=== PATIENT | male | born 1940 | race Caucasian/White ===

== ENCOUNTER 2018-04-19 13:43 | Inpatient (IN) | payer MEDICARE ==
[~2018-04-19] VITALS: Ht 188 cm; Wt 128.0 kg
[~2018-04-19 13:43] MED LIST: ASCO500C6 PO; ASPI-1181 PO; CHOL50004 PO; CLON1TAB5 PO; DILT120T PO; FINA5TAB41 PO; HYDR-4060 PO; LOVA40TA2 PO; METO100T7 PO; METO50TA9 PO; OMEP20CA10 PO; POTA20TA82 PO; RIVA20TA PO; TELM1TAB34 PO; TERA10CA4 PO; TIMO.5OS OD; VIT-10 PO; XALA2.5OS OD
[2018-04-19 14:18] LABS: BASOPHILS % (AUTO) 0.4 % (0.0-5.0); EOSINOPHILS % (AUTO) 3.5 % (0.0-8.0); HEMATOCRIT 38.8 % (42-54); MEAN CORPUSCULAR HEMOGLOBIN 31.4 pg (27.0-33.0); MEAN CORPUSCULAR HGB CONC 33.5 g/dL (32.0-36.0); MEAN CORPUSCULAR VOLUME 93.8 fL (79-99); MONOCYTES % (AUTO) 6.4 % (3.0-13.0); NEUTROPHILS % (AUTO) 77.7 % (40.0-77.0); PLATELET COUNT (AUTO) 161 K/uL (130-400); RED BLOOD CELL COUNT(AUTO) 4.13 MIL/uL (4.50-6.20); RED CELL DISTRIBUTION WIDTH 15.8 % (11.0-15.5); WHITE BLOOD COUNT (AUTO) 5.9 K/uL (4.8-10.8)
[2018-04-19 14:25] LABS: CREATININE 1.2 mg/dL (0.5-1.5); POTASSIUM 3.2 mmol/L (3.5-5.1)
[2018-04-19 14:29] LABS: ALBUMIN 3.3 g/dL (3.5-5.0); BILIRUBIN,TOTAL 0.7 mg/dL (0.2-1.0); TOTAL PROTEIN, SERUM 6.9 g/dL (6.0-8.3)
[2018-04-19 14:42] LABS: INR 1.01 (0.85-1.15); PARTIAL THROMBOPLASTIN TIME 36.5 SEC (26.3-35.5); PROTHROMBIN TIME 10.6 SEC (9.6-11.6)
[2018-04-19] MEDS ORDERED: CEFTRIAXONE SODIUM 1 GM ONE (16:50)
[2018-04-19] MEDS ORDERED: AZITHROMYCIN 250 MG TABLET PO ONE (16:51)
[2018-04-19] MEDS ORDERED: MORPHINE SULFATE 2 MG/ML 1ML SYG IVP PRN (18:00)
[2018-04-19 19:45] VITALS: BP 148/82
[2018-04-19] MEDS: IPRATROPIUM/ALBUTEROL SULFATE 3 ML SOLUTION IH SCH ×2 (19:53→23:26)
[2018-04-19] MEDS: NITROGLYCERIN 1GM/1 INCH PACKET TD SCH (20:27)
[2018-04-19] MEDS ORDERED: POTASSIUM CHLORIDE 10% ELIXIR 20 MEQ/15 ML UDCUP PO PRN (20:30)
[2018-04-19] MEDS ORDERED: POTASSIUM CHLORIDE 20MEQ/100ML 100 ML IV PRN (20:30)
[2018-04-19] MEDS ORDERED: LIDOCAINE HCL-MPF 1% 2ML VIAL IVP PRN (20:30)
[2018-04-19] MEDS ORDERED: AMIO200T5 PO (21:47)
[2018-04-19] MEDS ORDERED: TRAM100T34 PO (21:47)
[2018-04-19] MEDS ORDERED: LOSA100T29 PO (21:47)
[2018-04-19] MEDS ORDERED: CHOL100040 PO (21:47)
[2018-04-19] MEDS ORDERED: APIX5TAB PO (21:47)
[2018-04-19] MEDS ORDERED: TELM1TAB32 PO (21:47)
[2018-04-19] MEDS: POTASSIUM CHLORIDE 20 MEQ ERTAB PO PRN (23:13)
[2018-04-19 23:35] VITALS: BP 140/61
[2018-04-20] MEDS: POTASSIUM CHLORIDE 20 MEQ ERTAB PO PRN (00:59)
[2018-04-20] MEDS: NITROGLYCERIN 1GM/1 INCH PACKET TD SCH ×3 (02:00→18:00)
[2018-04-20 03:15] VITALS: BP 145/72
[2018-04-20] MEDS: IPRATROPIUM/ALBUTEROL SULFATE 3 ML SOLUTION IH SCH ×3 (06:40→18:54)
[2018-04-20 08:00] VITALS: BP 166/73
[2018-04-20] MEDS: APIXABAN 5 MG TABLET PO SCH ×3 (09:00→21:00)
[2018-04-20] MEDS ORDERED: TRAMADOL 100 MG PO PRN (09:00)
[2018-04-20] MEDS: FINASTERIDE 5 MG TABLET PO SCH (09:32)
[2018-04-20] MEDS: PANTOPRAZOLE SODIUM 40 MG TABLET.DR PO SCH (09:33)
[2018-04-20] MEDS: DILTIAZEM HCL 120 MG CAP.SR.24H PO SCH (09:33)
[2018-04-20] MEDS: ASCORBIC ACID 500 MG TAB PO SCH (09:33)
[2018-04-20] MEDS: LOSARTAN 100 MG TABLET PO SCH (09:33)
[2018-04-20] MEDS: ATORVASTATIN CALCIUM 10 MG TABLET PO SCH (09:34)
[2018-04-20] MEDS: AMIODARONE HCL 200 MG TABLET PO SCH (09:34)
[2018-04-20] MEDS: ASPIRIN 325 MG TABLET PO SCH (09:35)
[2018-04-20] MEDS: LOSARTAN/HYDROCHLOROTHIAZIDE 50-12.5MG TABLET PO SCH (09:35)
[2018-04-20] MEDS: FUROSEMIDE 10 MG/ML 2ML VIAL IV SCH (09:35)
[2018-04-20] MEDS: EYE VIT PO SCH (09:38)
[2018-04-20] MEDS: [UNRECOGNIZED DRUG - OTHER] PO SCH (09:38)
[2018-04-20] MEDS: **HM** TOPROL XL 100MG PO SCH (09:38)
[2018-04-20] MEDS: **HM** VIT D3 1000 UNITS PO SCH (09:39)
[2018-04-20 11:00] VITALS: BP 130/66
[2018-04-20 16:00] VITALS: BP 142/69
[2018-04-20] MEDS: CEFTRIAXONE SODIUM 1 GM IVP SCH (17:00)
[2018-04-20] MEDS: AZITHROMYCIN 500MG+NS 250ML 250 ML IV SCH (17:02)
[2018-04-20] MEDS ORDERED: ISOVUE-370 50ML VIAL IV ONE (17:04)
[2018-04-20 20:00] VITALS: BP 148/86
[2018-04-20] MEDS: **HM** TOPROL XL 50MG PO SCH (21:00)
[2018-04-20] MEDS: ASPIRIN 81 MG EC TAB PO SCH (21:00)
[2018-04-20] MEDS: TERAZOSIN HCL 5 MG CAPSULE PO SCH (21:00)
[2018-04-20] MEDS: POTASSIUM CHLORIDE 20 MEQ ERTAB PO SCH (22:40)
[2018-04-21] VITALS: BP 152/80
[2018-04-21] MEDS: IPRATROPIUM/ALBUTEROL SULFATE 3 ML SOLUTION IH SCH ×5 (00:53→23:51)
[2018-04-21] MEDS: NITROGLYCERIN 1GM/1 INCH PACKET TD SCH ×2 (02:15→10:00)
[2018-04-21 04:23] VITALS: BP 133/70
[2018-04-21 04:31] LABS: HEMATOCRIT 32.8 % (42-54); MEAN CORPUSCULAR HEMOGLOBIN 31.7 pg (27.0-33.0); PLATELET COUNT (AUTO) 183 K/uL (130-400); RED BLOOD CELL COUNT(AUTO) 3.52 MIL/uL (4.50-6.20); RED CELL DISTRIBUTION WIDTH 15.8 % (11.0-15.5); WHITE BLOOD COUNT (AUTO) 5.3 K/uL (4.8-10.8)
[2018-04-21 04:52] LABS: ALBUMIN 2.9 g/dL (3.5-5.0); BILIRUBIN,TOTAL 0.6 mg/dL (0.2-1.0); CREATININE 1.2 mg/dL (0.5-1.5); POTASSIUM 3.7 mmol/L (3.5-5.1)
[2018-04-21 04:54] LABS: B-TYPE NATRIURETIC PEPTIDE 128 pg/mL (0-100)
[2018-04-21 08:00] VITALS: BP 147/66
[2018-04-21] MEDS: [UNRECOGNIZED DRUG - OTHER] PO SCH (09:00)
[2018-04-21] MEDS: EYE VIT PO SCH (09:00)
[2018-04-21] MEDS: **HM** VIT D3 1000 UNITS PO SCH (09:00)
[2018-04-21] MEDS: FUROSEMIDE 10 MG/ML 2ML VIAL IV SCH (09:27)
[2018-04-21] MEDS: ASPIRIN 325 MG TABLET PO SCH (09:28)
[2018-04-21] MEDS: APIXABAN 5 MG TABLET PO SCH ×2 (09:29→21:02)
[2018-04-21] MEDS: ATORVASTATIN CALCIUM 10 MG TABLET PO SCH (09:29)
[2018-04-21] MEDS: ASCORBIC ACID 500 MG TAB PO SCH (09:29)
[2018-04-21] MEDS: FINASTERIDE 5 MG TABLET PO SCH (09:29)
[2018-04-21] MEDS: LOSARTAN/HYDROCHLOROTHIAZIDE 50-12.5MG TABLET PO SCH (09:29)
[2018-04-21] MEDS: PANTOPRAZOLE SODIUM 40 MG TABLET.DR PO SCH (09:30)
[2018-04-21] MEDS: LOSARTAN 100 MG TABLET PO SCH (09:30)
[2018-04-21] MEDS: DILTIAZEM HCL 120 MG CAP.SR.24H PO SCH (09:30)
[2018-04-21] MEDS: AMIODARONE HCL 200 MG TABLET PO SCH (09:30)
[2018-04-21] MEDS: POTASSIUM CHLORIDE 20 MEQ ERTAB PO SCH (09:31)
[2018-04-21] MEDS: **HM** TOPROL XL 100MG PO SCH (09:32)
[2018-04-21 11:00] VITALS: BP 129/69
[2018-04-21 16:00] VITALS: BP 144/77
[2018-04-21] MEDS: CEFTRIAXONE SODIUM 1 GM IVP SCH (17:29)
[2018-04-21] MEDS: AZITHROMYCIN 500MG+NS 250ML 250 ML IV SCH (17:31)
[2018-04-21 20:00] VITALS: BP 146/68
[2018-04-21] MEDS: **HM** TOPROL XL 50MG PO SCH (21:00)
[2018-04-21] MEDS: TERAZOSIN HCL 5 MG CAPSULE PO SCH (21:00)
[2018-04-21] MEDS: ASPIRIN 81 MG EC TAB PO SCH (21:02)
[2018-04-22] VITALS: BP 150/80
[2018-04-22] MEDS: NITROGLYCERIN 1GM/1 INCH PACKET TD SCH ×2 (03:20→10:40)
[2018-04-22 04:00] VITALS: BP 144/74
[2018-04-22 05:34] LABS: MEAN CORPUSCULAR HEMOGLOBIN 32.7 pg (27.0-33.0); MEAN CORPUSCULAR HGB CONC 35.4 g/dL (32.0-36.0); MEAN CORPUSCULAR VOLUME 92.3 fL (79-99); PLATELET COUNT (AUTO) 194 K/uL (130-400); RED BLOOD CELL COUNT(AUTO) 3.57 MIL/uL (4.50-6.20); RED CELL DISTRIBUTION WIDTH 15.7 % (11.0-15.5); WHITE BLOOD COUNT (AUTO) 6.4 K/uL (4.8-10.8)
[2018-04-22 05:48] LABS: CREATININE 1.1 mg/dL (0.5-1.5); POTASSIUM 3.9 mmol/L (3.5-5.1)
[2018-04-22] MEDS: IPRATROPIUM/ALBUTEROL SULFATE 3 ML SOLUTION IH SCH ×4 (06:51→18:50)
[2018-04-22 08:00] VITALS: BP 139/72
[2018-04-22] MEDS: [UNRECOGNIZED DRUG - OTHER] PO SCH (09:00)
[2018-04-22] MEDS: EYE VIT PO SCH (09:00)
[2018-04-22] MEDS: **HM** TOPROL XL 100MG PO SCH (09:00)
[2018-04-22] MEDS: **HM** VIT D3 1000 UNITS PO SCH (09:00)
[2018-04-22] MEDS ORDERED: TAMSULOSIN HCL 0.4 MG CAP.ER.24H PO SCH (09:00)
[2018-04-22] MEDS: ATORVASTATIN CALCIUM 10 MG TABLET PO SCH (10:39)
[2018-04-22] MEDS: LOSARTAN/HYDROCHLOROTHIAZIDE 50-12.5MG TABLET PO SCH (10:39)
[2018-04-22] MEDS: PANTOPRAZOLE SODIUM 40 MG TABLET.DR PO SCH (10:39)
[2018-04-22] MEDS: APIXABAN 5 MG TABLET PO SCH (10:39)
[2018-04-22] MEDS: AMIODARONE HCL 200 MG TABLET PO SCH (10:40)
[2018-04-22] MEDS: FINASTERIDE 5 MG TABLET PO SCH (10:40)
[2018-04-22] MEDS: DILTIAZEM HCL 120 MG CAP.SR.24H PO SCH (10:40)
[2018-04-22] MEDS: ASCORBIC ACID 500 MG TAB PO SCH (10:40)
[2018-04-22 12:00] VITALS: BP 153/77
[2018-04-22] MEDS: AZITHROMYCIN 500MG+NS 250ML 250 ML IV SCH (18:21)
[2018-04-22] MEDS: CEFTRIAXONE SODIUM 1 GM IVP SCH (18:22)
== END 2018-04-22 18:54 | DRG 194 ==
LOC: EDH 13:43 → EDHIP 17:25 → 3BH 19:38
PROVIDERS: ADMIT Family Medicine; ATTEND Family Medicine
DX: J18.9 Pneumonia, unspecified organism (principal); R04.2 Hemoptysis; I25.10 Atherosclerotic heart disease of native coronary artery without angina pectoris; E78.5 Hyperlipidemia, unspecified; E66.9 Obesity, unspecified; J30.2 Other seasonal allergic rhinitis; G89.29 Other chronic pain; I11.9 Hypertensive heart disease without heart failure; M54.9 Dorsalgia, unspecified; N40.1 Benign prostatic hyperplasia with lower urinary tract symptoms; J20.9 Acute bronchitis, unspecified; I48.0 Paroxysmal atrial fibrillation; R33.8 Other retention of urine; E78.00 Pure hypercholesterolemia, unspecified; Z96.653 Presence of artificial knee joint, bilateral; Z90.49 Acquired absence of other specified parts of digestive tract; Z87.891 Personal history of nicotine dependence; Z79.899 Other long term (current) drug therapy; Z95.5 Presence of coronary angioplasty implant and graft; Z79.01 Long term (current) use of anticoagulants; Z68.36 Body mass index [BMI] 36.0-36.9, adult; Z88.5 Allergy status to narcotic agent
CPT/HCPCS: 36415; 71045; 71270; 80048; 80053; 82270; 83880; 84132; 84484; 85025; 85027; 85610; 85730; 87071; 87205; 93005; 94640; 94664; 94760; A4218; A4344; J0456; J0696; J1940; Q9967

== ENCOUNTER → 2018-08-05 | Outpatient (CLI) | payer MEDICARE ==
[~2018-08-05] MED LIST changes: +AMIO200T5 PO; +APIX5TAB PO; +CHOL100040 PO; -CHOL50004 PO; +CLON1TAB12 PO; -CLON1TAB5 PO; +LOSA100T20 PO; -RIVA20TA PO; +TELM1TAB32 PO; +TRAM100T34 PO
== END | disposition home or self-care (01) ==
LOC: RAH 12:33
PROVIDERS: ATTEND Urology
DX: R31.29 Other microscopic hematuria (principal); N32.89 Other specified disorders of bladder
CPT/HCPCS: 76770

== ENCOUNTER → 2020-10-29 | Outpatient (CLI) | payer MEDICARE ==
[~2020-10-29] MED LIST changes: -AMIO200T5 PO; +AMIO200T6 PO; -ASPI-1181 PO; +ASPI-1443 PO; +IOHEXOL 350 MG/ML 100ML INFUS..BTL IV ONE; -LOSA100T20 PO; +LOSA100T58 PO; -OMEP20CA10 PO; +OMEP20CA12 PO
== END | disposition home or self-care (01) ==
LOC: RAH 07:26
PROVIDERS: ATTEND Internal Medicine Cardiovascular Disease
DX: I71.4 Abdominal aortic aneurysm, without rupture (principal); N40.0 Benign prostatic hyperplasia without lower urinary tract symptoms; I70.0 Atherosclerosis of aorta; E04.2 Nontoxic multinodular goiter
CPT/HCPCS: 71275; 74174; Q9967

== ENCOUNTER 2021-09-15 14:45 | Inpatient (IN) | payer MEDICARE ==
[~2021-09-15] VITALS: Ht 188 cm; Wt 118.0 kg
[~2021-09-15 14:45] MED LIST changes: -AMIO200T6 PO; +AMIO200T68 PO; -IOHEXOL 350 MG/ML 100ML INFUS..BTL IV ONE; +POTA-202 PO; -POTA20TA82 PO; -TELM1TAB34 PO; +TELM1TAB42 PO
[2021-09-15] MEDS ORDERED: MORPHINE 4 MG SYG IV ONE (15:30)
[2021-09-15] MEDS ORDERED: ONDANSETRON 4MG INJ IVP ONE (15:30)
[2021-09-15] MEDS ORDERED: KETOROLAC 15MG/ML VIAL (15MG/ML) IV ONE (15:30)
[2021-09-15 16:04] LABS: BASOPHILS % (AUTO) 0.4 % (0.0-5.0); EOSINOPHILS % (AUTO) 1.1 % (0.0-8.0); HEMATOCRIT 39.1 % (42-54); LYMPHOCYTES % (AUTO) 14.3 % (21.0-51.0); MEAN CORPUSCULAR HEMOGLOBIN 28.7 pg (27.0-33.0); MEAN CORPUSCULAR HGB CONC 31.7 g/dL (32.0-36.0); MEAN CORPUSCULAR VOLUME 90.5 fL (79-99); NEUTROPHILS % (AUTO) 76.1 % (40.0-77.0); PLATELET COUNT (AUTO) 263 K/uL (130-400); RED BLOOD CELL COUNT(AUTO) 4.32 MIL/uL (4.50-6.20); RED CELL DISTRIBUTION WIDTH 14.6 % (11.0-15.5); WHITE BLOOD COUNT (AUTO) 8.4 K/uL (4.8-10.8)
[2021-09-15 16:15] LABS: CREATININE 1.1 mg/dL (0.5-1.5)
[2021-09-15 16:20] LABS: ALBUMIN 2.6 g/dL (3.5-5.0); BILIRUBIN,TOTAL 0.5 mg/dL (0.2-1.0); TOTAL PROTEIN, SERUM 7.3 g/dL (6.0-8.3)
[2021-09-15] MEDS ORDERED: ONDANSETRON 4MG INJ ONE (16:43)
[2021-09-15] MEDS ORDERED: MORPHINE 4 MG SYG ONE (16:43)
[2021-09-15] MEDS ORDERED: KETOROLAC 15MG/ML VIAL (15MG/ML) ONE (16:43)
[2021-09-15] MEDS ORDERED: ONDANSETRON 4MG INJ IV PRN (18:00)
[2021-09-15] MEDS ORDERED: MORPHINE 2 MG SYG IV PRN (18:00)
[2021-09-15] MEDS ORDERED: ZOLPIDEM TARTRATE 5 MG TAB PO PRN (18:00)
[2021-09-15] MEDS ORDERED: LACTULOSE 20 GM/30 ML UDCUP PO PRN (18:00)
[2021-09-15] MEDS ORDERED: ACETAMINOPHEN 325 MG TAB PO PRN ×2 (18:00)
[2021-09-15] MEDS: FAMOTIDINE 20MG VIAL IV SCH (22:00)
[2021-09-15 23:45] VITALS: BP 141/58
[2021-09-16] MEDS ORDERED: AMLO-258 PO (01:09)
[2021-09-16] MEDS ORDERED: FURO40TA5 PO (01:09)
[2021-09-16] MEDS ORDERED: OCCUVITE PO (01:09)
[2021-09-16] MEDS ORDERED: MULT-1285 PO (01:09)
[2021-09-16] MEDS ORDERED: HYDR-3420 PO (01:09)
[2021-09-16 04:01] VITALS: BP 125/60
[2021-09-16 05:33] LABS: BASOPHILS % (AUTO) 0.4 % (0.0-5.0); EOSINOPHILS % (AUTO) 1.4 % (0.0-8.0); LYMPHOCYTES % (AUTO) 16.5 % (21.0-51.0); MEAN CORPUSCULAR HEMOGLOBIN 28.7 pg (27.0-33.0); MEAN CORPUSCULAR HGB CONC 31.1 g/dL (32.0-36.0); MEAN CORPUSCULAR VOLUME 92.3 fL (79-99); MONOCYTES % (AUTO) 9.5 % (3.0-13.0); NEUTROPHILS % (AUTO) 70.9 % (40.0-77.0); PLATELET COUNT (AUTO) 241 K/uL (130-400); RED CELL DISTRIBUTION WIDTH 14.6 % (11.0-15.5); WHITE BLOOD COUNT (AUTO) 8.5 K/uL (4.8-10.8)
[2021-09-16 05:47] LABS: ALBUMIN 2.3 g/dL (3.5-5.0); BILIRUBIN,TOTAL 0.5 mg/dL (0.2-1.0); POTASSIUM 4.3 mmol/L (3.5-5.1); TOTAL PROTEIN, SERUM 6.6 g/dL (6.0-8.3)
[2021-09-16 07:55] VITALS: BP 138/54
[2021-09-16] MEDS ORDERED: NON-FORMULARY MEDICATION 1 EACH (Metoprolol Succinate (Toprol Xl) 100 MG) PO SCH (09:00)
[2021-09-16] MEDS ORDERED: TELMISARTAN/HYDROCHLOROTHIAZID 80/12.5 MG TAB PO SCH (09:00)
[2021-09-16] MEDS ORDERED: [UNRECOGNIZED DRUG - OTHER] PO SCH (09:00)
[2021-09-16] MEDS: GABAPENTIN 100 MG CAPSULE PO SCH ×2 (09:50→19:59)
[2021-09-16] MEDS: ASPIRIN 81 MG EC TAB PO SCH (09:50)
[2021-09-16] MEDS: APIXABAN 5 MG TABLET PO SCH ×2 (09:51→19:59)
[2021-09-16] MEDS: FUROSEMIDE 40 MG TABLET PO SCH (09:51)
[2021-09-16] MEDS: ASCORBIC ACID 500 MG TAB PO SCH (09:51)
[2021-09-16] MEDS: AMIODARONE 200 MG TABLET PO SCH (09:52)
[2021-09-16] MEDS: HYDRALAZINE HCL 10 MG TABLET PO SCH (09:52)
[2021-09-16] MEDS: LOSARTAN 100 MG TABLET PO SCH (09:52)
[2021-09-16] MEDS: AMLODIPINE 5 MG TAB PO SCH (09:53)
[2021-09-16] MEDS: POLYETHYLENE GLYCOL 3350 17 GM POWD.PACK PO SCH (09:55)
[2021-09-16] MEDS: FAMOTIDINE 20MG VIAL IV SCH ×2 (09:55→21:28)
[2021-09-16] MEDS: METOPROLOL SUCCINATE 50 MG TAB.SR.24H PO SCH ×2 (11:21→20:00)
[2021-09-16] MEDS: PANTOPRAZOLE 40 MG TAB DR PO SCH (11:37)
[2021-09-16] MEDS: MORPHINE 2 MG SYG IV PRN ×2 (11:44→20:03)
[2021-09-16 12:00] VITALS: BP 146/62
[2021-09-16] MEDS: MULTIVITS,STRESS FORMULA/ZINC 1 TABLET PO SCH (15:20)
[2021-09-16 16:00] VITALS: BP 125/59
[2021-09-16] MEDS: TRAMADOL HCL 50 MG TABLET PO PRN (16:56)
[2021-09-16 19:55] VITALS: BP 152/64
[2021-09-16] MEDS ORDERED: KCL 20 MEQ ERTAB PO ONE (19:56)
[2021-09-16] MEDS: FINASTERIDE 5 MG TABLET PO SCH (19:59)
[2021-09-16] MEDS: SIMVASTATIN 20 MG TABLET PO SCH (19:59)
[2021-09-16] MEDS: KCL 20 MEQ ERTAB PO SCH (20:01)
[2021-09-16] MEDS: TERAZOSIN 5MG CAP PO SCH (20:02)
[2021-09-16] MEDS ORDERED: METOPROLOL SUCCINATE 50 MG TAB.SR.24H PO SCH (21:00)
[2021-09-16] MEDS ORDERED: LATANOPROST 2.5 ML DROPS OD SCH (21:00)
[2021-09-16 23:09] VITALS: BP 149/65
[2021-09-17 03:46] VITALS: BP 127/61
[2021-09-17 06:18] LABS: BASOPHILS % (AUTO) 0.3 % (0.0-5.0); EOSINOPHILS % (AUTO) 1.6 % (0.0-8.0); HEMATOCRIT 35.8 % (42-54); LYMPHOCYTES % (AUTO) 20.3 % (21.0-51.0); MEAN CORPUSCULAR HEMOGLOBIN 28.5 pg (27.0-33.0); MEAN CORPUSCULAR HGB CONC 31.3 g/dL (32.0-36.0); MEAN CORPUSCULAR VOLUME 91.1 fL (79-99); MONOCYTES % (AUTO) 10.1 % (3.0-13.0); NEUTROPHILS % (AUTO) 66.8 % (40.0-77.0); PLATELET COUNT (AUTO) 251 K/uL (130-400); RED BLOOD CELL COUNT(AUTO) 3.93 MIL/uL (4.50-6.20); RED CELL DISTRIBUTION WIDTH 14.6 % (11.0-15.5); WHITE BLOOD COUNT (AUTO) 7.7 K/uL (4.8-10.8)
[2021-09-17 06:27] LABS: CREATININE 1.1 mg/dL (0.5-1.5); POTASSIUM 4.2 mmol/L (3.5-5.1)
[2021-09-17] MEDS: PANTOPRAZOLE 40 MG TAB DR PO SCH (06:54)
[2021-09-17 08:00] VITALS: BP 140/62
[2021-09-17] MEDS: POLYETHYLENE GLYCOL 3350 17 GM POWD.PACK PO SCH (09:25)
[2021-09-17] MEDS: ASPIRIN 81 MG EC TAB PO SCH (09:27)
[2021-09-17] MEDS: ASCORBIC ACID 500 MG TAB PO SCH (09:28)
[2021-09-17] MEDS: LOSARTAN 100 MG TABLET PO SCH (09:28)
[2021-09-17] MEDS: FAMOTIDINE 20MG VIAL IV SCH ×2 (09:28→20:53)
[2021-09-17] MEDS: AMLODIPINE 5 MG TAB PO SCH (09:28)
[2021-09-17] MEDS: AMIODARONE 200 MG TABLET PO SCH (09:28)
[2021-09-17] MEDS: APIXABAN 5 MG TABLET PO SCH ×2 (09:28→20:30)
[2021-09-17] MEDS: HYDRALAZINE HCL 10 MG TABLET PO SCH (09:28)
[2021-09-17] MEDS: METOPROLOL SUCCINATE 50 MG TAB.SR.24H PO SCH ×2 (09:29→20:31)
[2021-09-17] MEDS: FUROSEMIDE 40 MG TABLET PO SCH (09:29)
[2021-09-17] MEDS ORDERED: HYDROCODONE/ACETAMINOPHEN 5/325 MG TAB PO PRN (10:00)
[2021-09-17 12:00] VITALS: BP 105/57
[2021-09-17] MEDS: GLYCERIN ADULT SUPP.RECT RC SCH (13:06)
[2021-09-17] MEDS: BACLOFEN 10 MG TABLET PO SCH ×2 (13:06→20:29)
[2021-09-17] MEDS: MULTIVITS,STRESS FORMULA/ZINC 1 TABLET PO SCH (14:51)
[2021-09-17 16:00] VITALS: BP 152/56
[2021-09-17 20:00] VITALS: BP 129/60
[2021-09-17] MEDS: CLONAZEPAM 1MG TAB PO PRN (20:29)
[2021-09-17] MEDS: FINASTERIDE 5 MG TABLET PO SCH (20:29)
[2021-09-17] MEDS: SIMVASTATIN 20 MG TABLET PO SCH (20:29)
[2021-09-17] MEDS: GABAPENTIN 100 MG CAPSULE PO SCH (20:30)
[2021-09-17] MEDS: KCL 20 MEQ ERTAB PO SCH (20:30)
[2021-09-17] MEDS: TERAZOSIN 5MG CAP PO SCH (20:31)
[2021-09-18] VITALS: BP 142/53
[2021-09-18 04:00] VITALS: BP 109/61
[2021-09-18] MEDS: PANTOPRAZOLE 40 MG TAB DR PO SCH (07:11)
[2021-09-18] MEDS: POLYETHYLENE GLYCOL 3350 17 GM POWD.PACK PO SCH (08:26)
[2021-09-18] MEDS: BACLOFEN 10 MG TABLET PO SCH ×2 (08:27→21:00)
[2021-09-18] MEDS: AMLODIPINE 5 MG TAB PO SCH (08:27)
[2021-09-18] MEDS: GABAPENTIN 100 MG CAPSULE PO SCH ×2 (08:27→21:00)
[2021-09-18] MEDS: MULTIVITS,STRESS FORMULA/ZINC 1 TABLET PO SCH (08:28)
[2021-09-18] MEDS: FUROSEMIDE 40 MG TABLET PO SCH (08:28)
[2021-09-18] MEDS: HYDRALAZINE HCL 10 MG TABLET PO SCH (08:28)
[2021-09-18] MEDS: METOPROLOL SUCCINATE 50 MG TAB.SR.24H PO SCH ×2 (08:28→21:01)
[2021-09-18] MEDS: LOSARTAN 100 MG TABLET PO SCH (08:28)
[2021-09-18] MEDS: AMIODARONE 200 MG TABLET PO SCH (08:29)
[2021-09-18] MEDS: FAMOTIDINE 20MG VIAL IV SCH ×2 (08:29→21:00)
[2021-09-18] MEDS: ASPIRIN 81 MG EC TAB PO SCH (08:29)
[2021-09-18] MEDS: ASCORBIC ACID 500 MG TAB PO SCH (08:29)
[2021-09-18] MEDS: APIXABAN 5 MG TABLET PO SCH ×2 (08:29→21:00)
[2021-09-18 08:52] VITALS: BP 153/58
[2021-09-18] MEDS ORDERED: SENNOSIDES 8.6 MG TABLET PO SCH (09:00)
[2021-09-18] MEDS: GLYCERIN ADULT SUPP.RECT RC SCH (09:31)
[2021-09-18 11:52] VITALS: BP 132/57
[2021-09-18] MEDS ORDERED: VANCOMYCIN PROTOCOL PER PHARMACY IV SCH (13:30)
[2021-09-18] MEDS ORDERED: COMPOUND IV REFRIGERATED 1 EACH IVSOLN MISC PRN (15:00)
[2021-09-18] MEDS: VANCOMYCIN 1.5GM/NS 250ML IV SCH ×2 (17:04)
[2021-09-18 17:14] VITALS: BP 120/73
[2021-09-18 20:00] VITALS: BP 112/62
[2021-09-18] MEDS: FINASTERIDE 5 MG TABLET PO SCH (21:00)
[2021-09-18] MEDS: SIMVASTATIN 20 MG TABLET PO SCH (21:01)
[2021-09-18] MEDS: KCL 20 MEQ ERTAB PO SCH (21:09)
[2021-09-18] MEDS: TERAZOSIN 5MG CAP PO SCH (21:09)
[2021-09-18] MEDS: CLONAZEPAM 1MG TAB PO PRN (21:40)
[2021-09-19] VITALS (7 sets, daily range): BP systolic 90–128; BP diastolic 47–59
[2021-09-19 06:21] LABS: BASOPHILS % (AUTO) 0.3 % (0.0-5.0); EOSINOPHILS % (AUTO) 3.2 % (0.0-8.0); HEMATOCRIT 35.4 % (42-54); LYMPHOCYTES % (AUTO) 13.5 % (21.0-51.0); MEAN CORPUSCULAR HEMOGLOBIN 28.9 pg (27.0-33.0); MEAN CORPUSCULAR HGB CONC 31.6 g/dL (32.0-36.0); MEAN CORPUSCULAR VOLUME 91.2 fL (79-99); MONOCYTES % (AUTO) 9.4 % (3.0-13.0); NEUTROPHILS % (AUTO) 72.6 % (40.0-77.0); PLATELET COUNT (AUTO) 264 K/uL (130-400); RED BLOOD CELL COUNT(AUTO) 3.88 MIL/uL (4.50-6.20); RED CELL DISTRIBUTION WIDTH 14.7 % (11.0-15.5); WHITE BLOOD COUNT (AUTO) 9.6 K/uL (4.8-10.8)
[2021-09-19] MEDS: PANTOPRAZOLE 40 MG TAB DR PO SCH (06:30)
[2021-09-19 06:33] LABS: CREATININE 1.4 mg/dL (0.5-1.5); POTASSIUM 4.1 mmol/L (3.5-5.1)
[2021-09-19] MEDS: ASPIRIN 81 MG EC TAB PO SCH (08:27)
[2021-09-19] MEDS: METOPROLOL SUCCINATE 50 MG TAB.SR.24H PO SCH ×2 (08:27→21:03)
[2021-09-19] MEDS: ASCORBIC ACID 500 MG TAB PO SCH (08:28)
[2021-09-19] MEDS: HYDRALAZINE HCL 10 MG TABLET PO SCH ×2 (08:28→09:00)
[2021-09-19] MEDS: AMIODARONE 200 MG TABLET PO SCH (08:28)
[2021-09-19] MEDS: GABAPENTIN 100 MG CAPSULE PO SCH ×2 (08:28→21:02)
[2021-09-19] MEDS: LOSARTAN 100 MG TABLET PO SCH (08:28)
[2021-09-19] MEDS: FUROSEMIDE 40 MG TABLET PO SCH (08:28)
[2021-09-19] MEDS: AMLODIPINE 5 MG TAB PO SCH (08:30)
[2021-09-19] MEDS: FAMOTIDINE 20MG VIAL IV SCH ×2 (08:32→21:01)
[2021-09-19] MEDS: APIXABAN 5 MG TABLET PO SCH ×2 (08:32→21:01)
[2021-09-19] MEDS: BACLOFEN 10 MG TABLET PO SCH (08:32)
[2021-09-19] MEDS: CEFTRIAXONE 2GM VIAL IVP SCH (09:00)
[2021-09-19] MEDS: VANCOMYCIN 1.5GM/NS 250ML IV SCH ×4 (09:00→21:05)
[2021-09-19] MEDS: GLYCERIN ADULT SUPP.RECT RC SCH (10:33)
[2021-09-19] MEDS: MULTIVITS,STRESS FORMULA/ZINC 1 TABLET PO SCH (10:53)
[2021-09-19] MEDS: FINASTERIDE 5 MG TABLET PO SCH (21:02)
[2021-09-19] MEDS: TERAZOSIN 5MG CAP PO SCH (21:02)
[2021-09-19] MEDS: SIMVASTATIN 20 MG TABLET PO SCH (21:02)
[2021-09-19] MEDS: KCL 20 MEQ ERTAB PO SCH (21:04)
[2021-09-20 03:14] VITALS: BP 124/60
[2021-09-20] MEDS: PANTOPRAZOLE 40 MG TAB DR PO SCH (06:13)
[2021-09-20] MEDS: TRAMADOL HCL 50 MG TABLET PO PRN (06:16)
[2021-09-20 06:44] LABS: BASOPHILS % (AUTO) 0.5 % (0.0-5.0); EOSINOPHILS % (AUTO) 4.5 % (0.0-8.0); HEMATOCRIT 34.4 % (42-54); MEAN CORPUSCULAR HEMOGLOBIN 28.5 pg (27.0-33.0); MEAN CORPUSCULAR HGB CONC 31.7 g/dL (32.0-36.0); MEAN CORPUSCULAR VOLUME 90.1 fL (79-99); MONOCYTES % (AUTO) 8.3 % (3.0-13.0); NEUTROPHILS % (AUTO) 68.6 % (40.0-77.0); PLATELET COUNT (AUTO) 288 K/uL (130-400); RED BLOOD CELL COUNT(AUTO) 3.82 MIL/uL (4.50-6.20); RED CELL DISTRIBUTION WIDTH 14.9 % (11.0-15.5); WHITE BLOOD COUNT (AUTO) 8.4 K/uL (4.8-10.8)
[2021-09-20 06:56] LABS: ALBUMIN 2.1 g/dL (3.5-5.0); BILIRUBIN,TOTAL 0.4 mg/dL (0.2-1.0); CREATININE 1.5 mg/dL (0.5-1.5); POTASSIUM 4.2 mmol/L (3.5-5.1); TOTAL PROTEIN, SERUM 6.4 g/dL (6.0-8.3)
[2021-09-20 07:15] VITALS: BP 142/70
[2021-09-20] MEDS: AMLODIPINE 5 MG TAB PO SCH (08:40)
[2021-09-20] MEDS: METOPROLOL SUCCINATE 50 MG TAB.SR.24H PO SCH ×2 (08:40→21:08)
[2021-09-20] MEDS: ASCORBIC ACID 500 MG TAB PO SCH (08:40)
[2021-09-20] MEDS: FUROSEMIDE 40 MG TABLET PO SCH (08:40)
[2021-09-20] MEDS: AMIODARONE 200 MG TABLET PO SCH (08:40)
[2021-09-20] MEDS: ASPIRIN 81 MG EC TAB PO SCH (08:40)
[2021-09-20] MEDS: LOSARTAN 100 MG TABLET PO SCH (08:40)
[2021-09-20] MEDS: GABAPENTIN 100 MG CAPSULE PO SCH ×2 (08:40→21:08)
[2021-09-20] MEDS: APIXABAN 5 MG TABLET PO SCH ×2 (08:41→21:09)
[2021-09-20] MEDS: HYDRALAZINE HCL 10 MG TABLET PO SCH (08:41)
[2021-09-20] MEDS: CEFTRIAXONE 2GM VIAL IVP SCH (08:41)
[2021-09-20] MEDS: FAMOTIDINE 20MG VIAL IV SCH (09:00)
[2021-09-20] MEDS: VANCOMYCIN 1.5GM/NS 250ML IV SCH ×2 (09:00)
[2021-09-20] MEDS: MULTIVITS,STRESS FORMULA/ZINC 1 TABLET PO SCH (10:36)
[2021-09-20 11:15] VITALS: BP 137/54
[2021-09-20 15:15] VITALS: BP 124/65
[2021-09-20 20:11] VITALS: BP 154/61
[2021-09-20] MEDS: KCL 20 MEQ ERTAB PO SCH (21:07)
[2021-09-20] MEDS: SIMVASTATIN 20 MG TABLET PO SCH (21:08)
[2021-09-20] MEDS: FINASTERIDE 5 MG TABLET PO SCH (21:08)
[2021-09-20] MEDS: TERAZOSIN 5MG CAP PO SCH (21:08)
[2021-09-20] MEDS ORDERED: VANCOMYCIN PROTOCOL PER PHARMACY IV SCH (21:30)
[2021-09-20] MEDS ORDERED: VANCOMYCIN 1G/250ML KIT 250 ML IV ONE (23:00)
[2021-09-20] MEDS ORDERED: 0.9% NACL 250ML 250 ML ONE (23:17)
[2021-09-20 23:24] VITALS: BP 138/51
[2021-09-21 03:11] VITALS: BP 140/60
[2021-09-21 04:28] LABS: BASOPHILS % (AUTO) 0.3 % (0.0-5.0); EOSINOPHILS % (AUTO) 4.2 % (0.0-8.0); HEMATOCRIT 33.8 % (42-54); LYMPHOCYTES % (AUTO) 17.5 % (21.0-51.0); MEAN CORPUSCULAR HEMOGLOBIN 28.3 pg (27.0-33.0); MEAN CORPUSCULAR HGB CONC 31.1 g/dL (32.0-36.0); MEAN CORPUSCULAR VOLUME 91.1 fL (79-99); MONOCYTES % (AUTO) 9.7 % (3.0-13.0); NEUTROPHILS % (AUTO) 66.9 % (40.0-77.0); PLATELET COUNT (AUTO) 298 K/uL (130-400); RED BLOOD CELL COUNT(AUTO) 3.71 MIL/uL (4.50-6.20); WHITE BLOOD COUNT (AUTO) 9.2 K/uL (4.8-10.8)
[2021-09-21 04:42] LABS: CREATININE 1.9 mg/dL (0.5-1.5); POTASSIUM 4.5 mmol/L (3.5-5.1)
[2021-09-21] MEDS: PANTOPRAZOLE 40 MG TAB DR PO SCH (06:02)
[2021-09-21 07:15] VITALS: BP 142/62
[2021-09-21] MEDS: GABAPENTIN 100 MG CAPSULE PO SCH ×2 (10:15→20:07)
[2021-09-21] MEDS: LOSARTAN 100 MG TABLET PO SCH (10:15)
[2021-09-21] MEDS: AMIODARONE 200 MG TABLET PO SCH (10:15)
[2021-09-21] MEDS: MULTIVITS,STRESS FORMULA/ZINC 1 TABLET PO SCH (10:15)
[2021-09-21] MEDS: ASCORBIC ACID 500 MG TAB PO SCH (10:15)
[2021-09-21] MEDS: METOPROLOL SUCCINATE 50 MG TAB.SR.24H PO SCH ×2 (10:16→20:07)
[2021-09-21] MEDS: AMLODIPINE 5 MG TAB PO SCH (10:16)
[2021-09-21] MEDS: ASPIRIN 81 MG EC TAB PO SCH (10:16)
[2021-09-21] MEDS: HYDRALAZINE HCL 10 MG TABLET PO SCH (10:17)
[2021-09-21] MEDS: CEFTRIAXONE 2GM VIAL IVP SCH (10:17)
[2021-09-21] MEDS: APIXABAN 5 MG TABLET PO SCH (10:17)
[2021-09-21 11:15] VITALS: BP 144/57
[2021-09-21] MEDS ORDERED: PEG 3350/NA SULF,BICARB,CL/KCL 4000 ML SOLN PO SCH (14:00)
[2021-09-21 15:15] VITALS: BP 136/73
[2021-09-21] MEDS ORDERED: MAGNESIUM CITRATE 296 ML SOLUTION PO SCH (18:00)
[2021-09-21 19:54] VITALS: BP 123/54
[2021-09-21] MEDS: FINASTERIDE 5 MG TABLET PO SCH (20:07)
[2021-09-21] MEDS: SIMVASTATIN 20 MG TABLET PO SCH (20:07)
[2021-09-21] MEDS: TERAZOSIN 5MG CAP PO SCH (20:09)
[2021-09-21] MEDS: KCL 20 MEQ ERTAB PO SCH (20:09)
[2021-09-21] MEDS ORDERED: VANCOMYCIN 1.5GM/NS 250ML IV SCH ×2 (21:00)
[2021-09-21 23:27] VITALS: BP 122/57
[2021-09-22 04:06] VITALS: BP 121/59
[2021-09-22] MEDS: PANTOPRAZOLE 40 MG TAB DR PO SCH (06:35)
[2021-09-22 06:58] LABS: BASOPHILS % (AUTO) 0.3 % (0.0-5.0); EOSINOPHILS % (AUTO) 3.1 % (0.0-8.0); HEMATOCRIT 32.5 % (42-54); LYMPHOCYTES % (AUTO) 16.4 % (21.0-51.0); MEAN CORPUSCULAR HEMOGLOBIN 28.2 pg (27.0-33.0); MEAN CORPUSCULAR HGB CONC 30.8 g/dL (32.0-36.0); MEAN CORPUSCULAR VOLUME 91.5 fL (79-99); MONOCYTES % (AUTO) 8.9 % (3.0-13.0); NEUTROPHILS % (AUTO) 69.5 % (40.0-77.0); PLATELET COUNT (AUTO) 299 K/uL (130-400); RED BLOOD CELL COUNT(AUTO) 3.55 MIL/uL (4.50-6.20); RED CELL DISTRIBUTION WIDTH 15.3 % (11.0-15.5); WHITE BLOOD COUNT (AUTO) 9.8 K/uL (4.8-10.8)
[2021-09-22 07:13] LABS: CREATININE 3.4 mg/dL (0.5-1.5); POTASSIUM 5.6 mmol/L (3.5-5.1)
[2021-09-22 08:00] VITALS: BP 122/55
[2021-09-22] MEDS ORDERED: PHARMACY COMMUNICATION MISC SCH (08:00)
[2021-09-22] MEDS ORDERED: 0.9%NACL 1000ML 1,000 ML IV ONE (08:00)
[2021-09-22] MEDS ORDERED: NA ZIRCON CYCLOSIL(LOKELMA 10GM) PO NR (08:30)
[2021-09-22] MEDS: AMIODARONE 200 MG TABLET PO SCH (08:40)
[2021-09-22] MEDS: MULTIVITS,STRESS FORMULA/ZINC 1 TABLET PO SCH (08:41)
[2021-09-22] MEDS: GABAPENTIN 100 MG CAPSULE PO SCH ×2 (08:41→19:54)
[2021-09-22] MEDS: ASCORBIC ACID 500 MG TAB PO SCH (08:41)
[2021-09-22] MEDS: METOPROLOL SUCCINATE 50 MG TAB.SR.24H PO SCH ×2 (08:41→19:54)
[2021-09-22] MEDS: ASPIRIN 81 MG EC TAB PO SCH (08:42)
[2021-09-22] MEDS: DEXTROSE 50%-WATER 50 ML DISP.SYRIN IV SCH (08:42)
[2021-09-22] MEDS: AMLODIPINE 5 MG TAB PO SCH (08:42)
[2021-09-22] MEDS: HYDRALAZINE HCL 10 MG TABLET PO SCH (08:42)
[2021-09-22] MEDS: CEFTRIAXONE 2GM VIAL IVP SCH (08:42)
[2021-09-22] MEDS: INSULIN HUMULIN R 100 UNIT/ML 3ML IV SCH (08:45)
[2021-09-22] MEDS ORDERED: LACTULOSE 20 GM/30 ML UDCUP PO SCH (09:00)
[2021-09-22] MEDS ORDERED: LACTULOSE 20 GM/30 ML UDCUP PO PRN (11:00)
[2021-09-22 11:45] VITALS: BP 120/54
[2021-09-22] MEDS ORDERED: PEG 3350/NA SULF,BICARB,CL/KCL 4000 ML SOLN PO SCH ×2 (14:00→15:00)
[2021-09-22 14:06] LABS: CREATININE 3.5 mg/dL (0.5-1.5); POTASSIUM 5.2 mmol/L (3.5-5.1)
[2021-09-22] MEDS: BISACODYL 5 MG TABLET.DR PO SCH (14:58)
[2021-09-22] MEDS ORDERED: BISACODYL 5 MG TABLET.DR PO SCH (15:00)
[2021-09-22 15:54] VITALS: BP 142/56
[2021-09-22] MEDS: SIMVASTATIN 20 MG TABLET PO SCH (19:54)
[2021-09-22] MEDS: TERAZOSIN 5MG CAP PO SCH (19:54)
[2021-09-22] MEDS: FINASTERIDE 5 MG TABLET PO SCH (19:55)
[2021-09-22 21:02] VITALS: BP 154/86
[2021-09-23] VITALS (18 sets, daily range): BP systolic 96–146; BP diastolic 48–85
[2021-09-23] MEDS: PANTOPRAZOLE 40 MG TAB DR PO SCH (05:00)
[2021-09-23] MEDS: DEXTROSE 50%-WATER 50 ML DISP.SYRIN IV SCH (05:00)
[2021-09-23] MEDS: INSULIN HUMULIN R 100 UNIT/ML 3ML IV SCH (05:01)
[2021-09-23 05:05] LABS: % IRON SATURATION 15.7 % (30-44)
[2021-09-23 08:21] LABS: HEMATOCRIT 32.5 % (42-54); MEAN CORPUSCULAR HGB CONC 31.4 g/dL (32.0-36.0); MEAN CORPUSCULAR VOLUME 89.3 fL (79-99); RED BLOOD CELL COUNT(AUTO) 3.64 MIL/uL (4.50-6.20); RED CELL DISTRIBUTION WIDTH 14.8 % (11.0-15.5)
[2021-09-23 08:29] LABS: CREATININE 2.5 mg/dL (0.5-1.5); POTASSIUM 4.7 mmol/L (3.5-5.1)
[2021-09-23] MEDS ORDERED: COMPOUND IV MISC 1 EACH IVSOLN MISC PRN (08:30)
[2021-09-23] MEDS: MULTIVITS,STRESS FORMULA/ZINC 1 TABLET PO SCH (09:00)
[2021-09-23] MEDS: AMLODIPINE 5 MG TAB PO SCH (09:00)
[2021-09-23] MEDS ORDERED: LACTULOSE 20 GM/30 ML UDCUP PO SCH ×2 (09:00→11:00)
[2021-09-23] MEDS: GABAPENTIN 100 MG CAPSULE PO SCH ×2 (09:00→20:06)
[2021-09-23] MEDS: ASCORBIC ACID 500 MG TAB PO SCH (09:00)
[2021-09-23] MEDS: METOPROLOL SUCCINATE 50 MG TAB.SR.24H PO SCH ×2 (09:00→20:06)
[2021-09-23] MEDS: ASPIRIN 81 MG EC TAB PO SCH (09:00)
[2021-09-23] MEDS: HYDRALAZINE HCL 10 MG TABLET PO SCH (09:00)
[2021-09-23] MEDS: CEFTRIAXONE 2GM VIAL IVP SCH (09:39)
[2021-09-23] MEDS: IRON SUCROSE COMPLEX 300 MG in 0.9%NACL 50ML 50 ML IV SCH (09:40)
[2021-09-23] MEDS ORDERED: SOD FERRIC GLUC COMPLEX/SUC 125 MG in 0.9%NACL 100ML 100 ML IV SCH (12:30)
[2021-09-23] MEDS ORDERED: PEG 3350/NA SULF,BICARB,CL/KCL 4000 ML SOLN PO SCH (14:00)
[2021-09-23] MEDS: BISACODYL 5 MG TABLET.DR PO SCH (15:00)
[2021-09-23] MEDS ORDERED: BISACODYL 5 MG TABLET.DR PO SCH (15:00)
[2021-09-23] MEDS ORDERED: PROPOFOL 10 MG/ML 20ML VIAL IV ONE ×2 (15:29→16:11)
[2021-09-23] MEDS: AMIODARONE 200 MG TABLET PO SCH (19:30)
[2021-09-23] MEDS: SIMVASTATIN 20 MG TABLET PO SCH (20:06)
[2021-09-23] MEDS: CLONAZEPAM 1MG TAB PO PRN (20:06)
[2021-09-23] MEDS: FINASTERIDE 5 MG TABLET PO SCH (20:06)
[2021-09-23] MEDS: TERAZOSIN 5MG CAP PO SCH (20:07)
[2021-09-24] VITALS (8 sets, daily range): BP systolic 102–155; BP diastolic 50–62
[2021-09-24 04:45] LABS: HEMATOCRIT 31.3 % (42-54); MEAN CORPUSCULAR HEMOGLOBIN 27.8 pg (27.0-33.0); MEAN CORPUSCULAR HGB CONC 31.3 g/dL (32.0-36.0); MEAN CORPUSCULAR VOLUME 88.9 fL (79-99); RED BLOOD CELL COUNT(AUTO) 3.52 MIL/uL (4.50-6.20); RED CELL DISTRIBUTION WIDTH 14.8 % (11.0-15.5); WHITE BLOOD COUNT (AUTO) 7.3 K/uL (4.8-10.8)
[2021-09-24 04:52] LABS: CREATININE 1.7 mg/dL (0.5-1.5); POTASSIUM 4.5 mmol/L (3.5-5.1)
[2021-09-24] MEDS: PANTOPRAZOLE 40 MG TAB DR PO SCH (06:39)
[2021-09-24] MEDS: DEXTROSE 50%-WATER 50 ML DISP.SYRIN IV SCH (08:00)
[2021-09-24] MEDS: INSULIN HUMULIN R 100 UNIT/ML 3ML IV SCH (08:00)
[2021-09-24] MEDS: BISACODYL 5 MG TABLET.DR PO SCH (11:15)
[2021-09-24] MEDS: ASCORBIC ACID 500 MG TAB PO SCH (11:23)
[2021-09-24] MEDS: IRON SUCROSE COMPLEX 300 MG in 0.9%NACL 50ML 50 ML IV SCH (11:23)
[2021-09-24] MEDS: MULTIVITS,STRESS FORMULA/ZINC 1 TABLET PO SCH (11:23)
[2021-09-24] MEDS: ASPIRIN 81 MG EC TAB PO SCH (11:23)
[2021-09-24] MEDS: GABAPENTIN 100 MG CAPSULE PO SCH ×2 (11:23→20:14)
[2021-09-24] MEDS: HYDRALAZINE HCL 10 MG TABLET PO SCH ×2 (11:24→13:11)
[2021-09-24] MEDS: CEFTRIAXONE 2GM VIAL IVP SCH (11:24)
[2021-09-24] MEDS: AMIODARONE 200 MG TABLET PO SCH (11:24)
[2021-09-24] MEDS ORDERED: PHARMACY COMMUNICATION MISC SCH (12:00)
[2021-09-24] MEDS ORDERED: MORPHINE 2 MG SYG ONE (12:43)
[2021-09-24] MEDS: MORPHINE 2 MG SYG IVP PRN ×2 (13:28→22:19)
[2021-09-24] MEDS: TERAZOSIN 5MG CAP PO SCH (20:13)
[2021-09-24] MEDS: SIMVASTATIN 20 MG TABLET PO SCH (20:13)
[2021-09-24] MEDS: FINASTERIDE 5 MG TABLET PO SCH (20:13)
[2021-09-24] MEDS: CLONAZEPAM 1MG TAB PO PRN (20:14)
[2021-09-25 03:44] VITALS: BP 144/60
[2021-09-25 04:46] LABS: HEMATOCRIT 32.7 % (42-54); MEAN CORPUSCULAR HEMOGLOBIN 28.1 pg (27.0-33.0); MEAN CORPUSCULAR HGB CONC 31.2 g/dL (32.0-36.0); MEAN CORPUSCULAR VOLUME 90.1 fL (79-99); RED BLOOD CELL COUNT(AUTO) 3.63 MIL/uL (4.50-6.20); RED CELL DISTRIBUTION WIDTH 14.4 % (11.0-15.5); WHITE BLOOD COUNT (AUTO) 6.3 K/uL (4.8-10.8)
[2021-09-25 04:58] LABS: CREATININE 1.3 mg/dL (0.5-1.5); POTASSIUM 4.1 mmol/L (3.5-5.1)
[2021-09-25 07:15] VITALS: BP 111/57
[2021-09-25] MEDS: DEXTROSE 50%-WATER 50 ML DISP.SYRIN IV SCH (08:00)
[2021-09-25] MEDS: INSULIN HUMULIN R 100 UNIT/ML 3ML IV SCH (08:00)
[2021-09-25] MEDS: IRON SUCROSE COMPLEX 300 MG in 0.9%NACL 50ML 50 ML IV SCH (09:24)
[2021-09-25] MEDS: GABAPENTIN 100 MG CAPSULE PO SCH ×2 (09:25→21:23)
[2021-09-25] MEDS: CEFTRIAXONE 2GM VIAL IVP SCH (09:25)
[2021-09-25] MEDS: ASCORBIC ACID 500 MG TAB PO SCH (09:25)
[2021-09-25] MEDS: HYDRALAZINE HCL 10 MG TABLET PO SCH (09:25)
[2021-09-25] MEDS: AMIODARONE 200 MG TABLET PO SCH (09:25)
[2021-09-25] MEDS: ASPIRIN 81 MG EC TAB PO SCH (09:25)
[2021-09-25] MEDS: PANTOPRAZOLE 40 MG TAB DR PO SCH (10:00)
[2021-09-25] MEDS: MULTIVITS,STRESS FORMULA/ZINC 1 TABLET PO SCH (10:01)
[2021-09-25 11:15] VITALS: BP 110/62
[2021-09-25] MEDS: BISACODYL 5 MG TABLET.DR PO SCH (15:00)
[2021-09-25 15:10] VITALS: BP 125/63
[2021-09-25] MEDS: MORPHINE 2 MG SYG IVP PRN (19:01)
[2021-09-25 19:56] VITALS: BP 157/57
[2021-09-25] MEDS: FINASTERIDE 5 MG TABLET PO SCH (21:23)
[2021-09-25] MEDS: TERAZOSIN 5MG CAP PO SCH (21:23)
[2021-09-25] MEDS: SIMVASTATIN 20 MG TABLET PO SCH (21:24)
[2021-09-25] MEDS: CLONAZEPAM 1MG TAB PO PRN ×2 (21:26→22:34)
[2021-09-26] VITALS: BP 148/62
[2021-09-26 04:25] VITALS: BP 146/62
[2021-09-26] MEDS: PANTOPRAZOLE 40 MG TAB DR PO SCH (06:35)
[2021-09-26 08:00] VITALS: BP 129/72
[2021-09-26] MEDS: IRON SUCROSE COMPLEX 300 MG in 0.9%NACL 50ML 50 ML IV SCH (09:00)
[2021-09-26] MEDS: ASCORBIC ACID 500 MG TAB PO SCH (11:26)
[2021-09-26] MEDS: AMIODARONE 200 MG TABLET PO SCH (11:26)
[2021-09-26] MEDS: CEFTRIAXONE 2GM VIAL IVP SCH (11:26)
[2021-09-26] MEDS: ASPIRIN 81 MG EC TAB PO SCH (11:27)
[2021-09-26] MEDS: HYDRALAZINE HCL 10 MG TABLET PO SCH (11:27)
[2021-09-26 11:38] VITALS: BP 138/63
[2021-09-26] MEDS: GABAPENTIN 100 MG CAPSULE PO SCH (11:51)
[2021-09-26 16:00] VITALS: BP 133/57
[2021-09-26] MEDS: MORPHINE 2 MG SYG IVP PRN (16:12)
== END 2021-09-26 21:02 | DRG 872 ==
LOC: EDH 14:53 → EDHIP 17:57 → 3AH 23:05
PROVIDERS: ADMIT Internal Medicine; ATTEND Internal Medicine
PROC: 0DBL8ZZ Excision of Transverse Colon, Via Natural or Artificial Opening Endoscopic (ICD-10-PCS; principal; 2021-09-23)
DX: A41.9 Sepsis, unspecified organism (principal); C18.9 Malignant neoplasm of colon, unspecified; E46 Unspecified protein-calorie malnutrition; I13.0 Hypertensive heart and chronic kidney disease with heart failure and stage 1 through stage 4 chronic kidney disease, or unspecified chronic kidney disease; I50.32 Chronic diastolic (congestive) heart failure; N13.8 Other obstructive and reflux uropathy; N17.9 Acute kidney failure, unspecified; D62 Acute posthemorrhagic anemia; M48.061 Spinal stenosis, lumbar region without neurogenic claudication; K80.20 Calculus of gallbladder without cholecystitis without obstruction; Z96.653 Presence of artificial knee joint, bilateral; E11.22 Type 2 diabetes mellitus with diabetic chronic kidney disease; N18.9 Chronic kidney disease, unspecified; R53.81 Other malaise; G89.29 Other chronic pain; F41.9 Anxiety disorder, unspecified; B95.4 Other streptococcus as the cause of diseases classified elsewhere; B96.89 Other specified bacterial agents as the cause of diseases classified elsewhere; D50.0 Iron deficiency anemia secondary to blood loss (chronic); D63.8 Anemia in other chronic diseases classified elsewhere; E66.01 Morbid (severe) obesity due to excess calories; E78.00 Pure hypercholesterolemia, unspecified; E78.5 Hyperlipidemia, unspecified; E87.5 Hyperkalemia; E11.40 Type 2 diabetes mellitus with diabetic neuropathy, unspecified; H40.9 Unspecified glaucoma; I25.10 Atherosclerotic heart disease of native coronary artery without angina pectoris; I34.0 Nonrheumatic mitral (valve) insufficiency; I48.0 Paroxysmal atrial fibrillation; K63.5 Polyp of colon; Z68.33 Body mass index [BMI] 33.0-33.9, adult; K59.09 Other constipation; K64.8 Other hemorrhoids; N18.2 Chronic kidney disease, stage 2 (mild); M47.819 Spondylosis without myelopathy or radiculopathy, site unspecified; N31.9 Neuromuscular dysfunction of bladder, unspecified; N40.1 Benign prostatic hyperplasia with lower urinary tract symptoms; Z98.49 Cataract extraction status, unspecified eye; Z74.01 Bed confinement status; Z95.1 Presence of aortocoronary bypass graft; Z90.49 Acquired absence of other specified parts of digestive tract; Z79.01 Long term (current) use of anticoagulants; Z79.899 Other long term (current) drug therapy; Z95.5 Presence of coronary angioplasty implant and graft; Z91.81 History of falling; Z87.891 Personal history of nicotine dependence; Z87.01 Personal history of pneumonia (recurrent); Z86.79 Personal history of other diseases of the circulatory system; Z86.010 Personal history of colon polyps; Z82.3 Family history of stroke; Z80.9 Family history of malignant neoplasm, unspecified; Z82.49 Family history of ischemic heart disease and other diseases of the circulatory system; K57.30 Diverticulosis of large intestine without perforation or abscess without bleeding
CPT/HCPCS: 36415; 45381; 45385; 70450; 71045; 72100; 72131; 72132; 74176; 78806; 80048; 80053; 80202; 82550; 82570; 83540; 83550; 83874; 84484; 84540; 85025; 85027; 85651; 86140; 87040; 87077; 87186; 87324; 93306; 97039; A4606; A9556; G0378; J0696; J1756; J1815; J1885; J2270; J2405; J2704; J3370; J3490; J7030; J7050; J7070

== ENCOUNTER 2021-10-03 18:28 | Inpatient (IN) | payer MEDICARE ==
[~2021-10-03] VITALS: Ht 170.2 cm; Wt 120.4 kg
[~2021-10-03 18:28] MED LIST changes: +AMLO-258 PO; -DILT120T PO; +FURO40TA5 PO; +HYDR-3420 PO; -HYDR-4060 PO; -METO50TA9 PO; +MULT-1285 PO; +OCCUVITE PO; -TELM1TAB32 PO; -TELM1TAB42 PO; -TIMO.5OS OD; -VIT-10 PO; -XALA2.5OS OD
[2021-10-03 18:52] LABS: BASOPHILS % (AUTO) 0.2 % (0.0-5.0); EOSINOPHILS % (AUTO) 1.9 % (0.0-8.0); HEMATOCRIT 27.8 % (42-54); LYMPHOCYTES % (AUTO) 16.1 % (21.0-51.0); MEAN CORPUSCULAR HEMOGLOBIN 28.8 pg (27.0-33.0); MEAN CORPUSCULAR HGB CONC 30.6 g/dL (32.0-36.0); MEAN CORPUSCULAR VOLUME 94.2 fL (79-99); MONOCYTES % (AUTO) 5.7 % (3.0-13.0); NEUTROPHILS % (AUTO) 75.2 % (40.0-77.0); PLATELET COUNT (AUTO) 194 K/uL (130-400); RED BLOOD CELL COUNT(AUTO) 2.95 MIL/uL (4.50-6.20); RED CELL DISTRIBUTION WIDTH 15.9 % (11.0-15.5); WHITE BLOOD COUNT (AUTO) 9.9 K/uL (4.8-10.8)
[2021-10-03] MEDS ORDERED: 0.9%NACL 1000ML 1,000 ML IV ONE ×2 (19:00→20:00)
[2021-10-03 19:08] LABS: CREATININE 1.5 mg/dL (0.5-1.5)
[2021-10-03 19:12] LABS: BILIRUBIN,TOTAL 0.2 mg/dL (0.2-1.0); TOTAL PROTEIN, SERUM 5.4 g/dL (6.0-8.3)
[2021-10-03 19:17] LABS: INR 1.21 (0.85-1.15)
[2021-10-03 19:19] LABS: PARTIAL THROMBOPLASTIN TIME 36.7 SEC (26.3-35.5)
[2021-10-03] MEDS ORDERED: PANTOPRAZOLE 40 MG/VIAL IVP ONE (20:00)
[2021-10-03] MEDS ORDERED: FENTANYL CITRATE PF 50 MCG/1 ML 2ML VIAL IVP ONE (20:00)
[2021-10-03] MEDS ORDERED: PANTOPRAZOLE 40 MG/VIAL ONE (20:19)
[2021-10-03] MEDS ORDERED: NOREPINEPHRIN 4MG/NS 250ML 250 ML IV ONE (20:19)
[2021-10-03] MEDS: NOREPINEPHRIN 4MG/NS 250ML 250 ML IV SCH (20:38)
[2021-10-03 20:51] LABS: % IRON SATURATION 28.7 % (30-44)
[2021-10-03] MEDS: 0.9%NACL 1000ML 1,000 ML IV SCH (21:01)
[2021-10-03 23:14] LABS: BILIRUBIN,URINE Negative (NEGATIVE); COLOR,URINE Yellow (YELLOW); GLUCOSE, URINE (UA) Negative (NEGATIVE); KETONES,URINE Negative (NEGATIVE); LEUKOCYTE ESTERASE ,URINE Large (NEGATIVE); NITRATE,URINE Negative (NEGATIVE); OCCULT BLOOD,URINE Large (NEGATIVE); PROTEIN,URINE Negative (NEGATIVE); UROBILINOGEN,URINE 0.2 mg/dL (0.2-1.0)
[2021-10-03 23:16] LABS: APPEARANCE,URINE CLOUDY (CLEAR)
[2021-10-03 23:22] LABS: BACTERIA,URINE Rare /HPF (None Seen); MUCUS,URINE Few LPF (None Seen); SQUAMOUS EPITHELIAL CELL,UR Few /HPF (0-2)
[2021-10-03 23:23] LABS: AMORPHOUS SEDIMENT,UR Few /LPF (None Seen); CALCIUM OXALATE CRYSTALS,UR Few /LPF (None Seen)
[2021-10-04] VITALS (42 sets, daily range): BP systolic 76–128; BP diastolic 30–58
[2021-10-04 02:22] LABS: HEMATOCRIT 25.3 % (42-54)
[2021-10-04] MEDS: FENTANYL CITRATE PF 50 MCG/1 ML 2ML VIAL IVP PRN (05:37)
[2021-10-04] MEDS: 0.9%NACL 1000ML 1,000 ML IV SCH ×2 (06:00→21:36)
[2021-10-04] MEDS ORDERED: 0.9%NACL 50ML 50 ML IV ONE (10:14)
[2021-10-04 10:15] LABS: BASOPHILS % (AUTO) 0.4 % (0.0-5.0); EOSINOPHILS % (AUTO) 3.3 % (0.0-8.0); HEMATOCRIT 25.4 % (42-54); LYMPHOCYTES % (AUTO) 15.5 % (21.0-51.0); MEAN CORPUSCULAR HEMOGLOBIN 28.3 pg (27.0-33.0); MEAN CORPUSCULAR HGB CONC 31.1 g/dL (32.0-36.0); MONOCYTES % (AUTO) 5.8 % (3.0-13.0); NEUTROPHILS % (AUTO) 73.8 % (40.0-77.0); PLATELET COUNT (AUTO) 179 K/uL (130-400); RED BLOOD CELL COUNT(AUTO) 2.79 MIL/uL (4.50-6.20); RED CELL DISTRIBUTION WIDTH 15.9 % (11.0-15.5); WHITE BLOOD COUNT (AUTO) 7.6 K/uL (4.8-10.8)
[2021-10-04] MEDS: CEFTRIAXONE 2GM VIAL IVP SCH (10:16)
[2021-10-04 10:30] LABS: CREATININE 1.2 mg/dL (0.5-1.5); MAGNESIUM 1.9 mg/dL (1.80-2.40); PHOSPHORUS 2.7 mg/dL (2.5-4.9); POTASSIUM 4.1 mmol/L (3.5-5.1)
[2021-10-04] MEDS ORDERED: 0.9% NACL 250ML 250 ML ONE ×2 (11:56→15:27)
[2021-10-04] MEDS ORDERED: PHYTONADIONE 10 MG in 0.9%NACL 50ML 50 ML IVPB SCH (13:00)
[2021-10-04] MEDS ORDERED: PHARMACY COMMUNICATION MISC SCH (13:00)
[2021-10-04] MEDS ORDERED: PEG 3350/NA SULF,BICARB,CL/KCL 4000 ML SOLN PO SCH (17:00)
[2021-10-04 18:16] LABS: HEMATOCRIT 22.4 % (42-54)
[2021-10-05] VITALS (24 sets, daily range): BP systolic 92–140; BP diastolic 43–74
[2021-10-05] MEDS: NOREPINEPHRIN 4MG/NS 250ML 250 ML IV SCH ×4 (00:02→20:43)
[2021-10-05] MEDS: PANTOPRAZOLE 40MG INJ 80 MG in 0.9%NACL 100ML 100 ML IV SCH ×2 (00:21→22:36)
[2021-10-05 00:26] LABS: HEMATOCRIT 23.1 % (42-54)
[2021-10-05 05:52] LABS: BASOPHILS % (AUTO) 0.5 % (0.0-5.0); EOSINOPHILS % (AUTO) 1.7 % (0.0-8.0); HEMATOCRIT 22.3 % (42-54); LYMPHOCYTES % (AUTO) 11.6 % (21.0-51.0); MEAN CORPUSCULAR HGB CONC 30.5 g/dL (32.0-36.0); MEAN CORPUSCULAR VOLUME 91.8 fL (79-99); MONOCYTES % (AUTO) 6.2 % (3.0-13.0); NEUTROPHILS % (AUTO) 78.4 % (40.0-77.0); PLATELET COUNT (AUTO) 162 K/uL (130-400); RED BLOOD CELL COUNT(AUTO) 2.43 MIL/uL (4.50-6.20); RED CELL DISTRIBUTION WIDTH 16.2 % (11.0-15.5); WHITE BLOOD COUNT (AUTO) 8.9 K/uL (4.8-10.8)
[2021-10-05 06:05] LABS: CREATININE 0.9 mg/dL (0.5-1.5); POTASSIUM 3.5 mmol/L (3.5-5.1)
[2021-10-05] MEDS ORDERED: POTASSIUM CHLORIDE 20 MEQ/100 ML BAG IV SCH (06:30)
[2021-10-05] MEDS: CEFTRIAXONE 2GM VIAL IVP SCH (10:20)
[2021-10-05] MEDS: MAGNESIUM CITRATE 296 ML SOLUTION PO SCH (12:34)
[2021-10-05] MEDS ORDERED: IOHEXOL 350 MG/ML 100ML INFUS..BTL IV ONE (13:33)
[2021-10-05] MEDS: FENTANYL CITRATE PF 50 MCG/1 ML 2ML VIAL IVP PRN ×2 (13:37→19:13)
[2021-10-05] MEDS: ONDANSETRON 4MG INJ IV PRN (15:05)
[2021-10-05 15:14] LABS: HEMATOCRIT 24.4 % (42-54)
[2021-10-05] MEDS ORDERED: MAGNESIUM CITRATE 296 ML SOLUTION PO SCH (18:30)
[2021-10-06] VITALS (29 sets, daily range): BP systolic 105–144; BP diastolic 50–74
[2021-10-06 05:11] LABS: HEMATOCRIT 27.5 % (42-54)
[2021-10-06 05:39] LABS: CREATININE 0.9 mg/dL (0.5-1.5); POTASSIUM 3.4 mmol/L (3.5-5.1)
[2021-10-06] MEDS: NOREPINEPHRIN 4MG/NS 250ML 250 ML IV SCH (07:22)
[2021-10-06] MEDS ORDERED: PROPOFOL 10 MG/ML 20ML VIAL IV ONE (08:00)
[2021-10-06] MEDS ORDERED: 0.9% NACL 250ML 250 ML ONE (08:19)
[2021-10-06] MEDS: PANTOPRAZOLE 40MG INJ 80 MG in 0.9%NACL 100ML 100 ML IV SCH ×2 (08:22→21:14)
[2021-10-06] MEDS ORDERED: 0.9%NACL 50ML 50 ML IV ONE (08:59)
[2021-10-06] MEDS: CEFTRIAXONE 2GM VIAL IVP SCH (09:07)
[2021-10-06] MEDS ORDERED: LIDOCAINE HCL-MPF 1% 2ML VIAL IV PRN (10:30)
[2021-10-06] MEDS ORDERED: POTASSIUM CHLORIDE 10MEQ/100ML 100 ML IV PRN (10:30)
[2021-10-06] MEDS ORDERED: PHARMACY COMMUNICATION MISC SCH (11:00)
[2021-10-06] MEDS: ALBUMIN (HUMAN) 25% 50 ML IV SCH ×2 (11:29→17:35)
[2021-10-06] MEDS: MAGNESIUM CITRATE 296 ML SOLUTION PO SCH (11:30)
[2021-10-06] MEDS: LACTATED RINGERS 500 ML 500 ML IV SCH ×2 (11:31→12:00)
[2021-10-06] MEDS: ONDANSETRON 4MG INJ IV PRN ×2 (14:05→23:40)
[2021-10-06 15:30] LABS: HEMATOCRIT 25.8 % (42-54)
[2021-10-06] MEDS ORDERED: PEG 3350/NA SULF,BICARB,CL/KCL 4000 ML SOLN PO SCH (16:00)
[2021-10-07] VITALS (17 sets, daily range): BP systolic 103–142; BP diastolic 36–67
[2021-10-07 04:48] LABS: BASOPHILS % (AUTO) 0.3 % (0.0-5.0); EOSINOPHILS % (AUTO) 2.3 % (0.0-8.0); HEMATOCRIT 24.8 % (42-54); LYMPHOCYTES % (AUTO) 15.4 % (21.0-51.0); MEAN CORPUSCULAR HEMOGLOBIN 29.2 pg (27.0-33.0); MEAN CORPUSCULAR HGB CONC 31.5 g/dL (32.0-36.0); MEAN CORPUSCULAR VOLUME 92.9 fL (79-99); MONOCYTES % (AUTO) 7.1 % (3.0-13.0); NEUTROPHILS % (AUTO) 73.2 % (40.0-77.0); NUCLEATED RED BLOOD CELLS 0.3 % (0.0-0.19); PLATELET COUNT (AUTO) 159 K/uL (130-400); RED BLOOD CELL COUNT(AUTO) 2.67 MIL/uL (4.50-6.20); RED CELL DISTRIBUTION WIDTH 16.5 % (11.0-15.5); WHITE BLOOD COUNT (AUTO) 5.8 K/uL (4.8-10.8)
[2021-10-07 05:02] LABS: CREATININE 0.8 mg/dL (0.5-1.5)
[2021-10-07 05:53] LABS: POTASSIUM 2.8 mmol/L (3.5-5.1)
[2021-10-07] MEDS ORDERED: LIDOCAINE HCL-MPF 1% 2ML VIAL IV PRN (07:30)
[2021-10-07] MEDS ORDERED: 0.9%NACL 50ML 50 ML IV ONE (07:38)
[2021-10-07] MEDS: POTASSIUM CHLORIDE 20MEQ/100ML 100 ML IV PRN ×3 (07:40→10:54)
[2021-10-07] MEDS: PANTOPRAZOLE 40MG INJ 80 MG in 0.9%NACL 100ML 100 ML IV SCH (08:21)
[2021-10-07] MEDS ORDERED: LACTATED RINGERS 1000ML 1,000 ML IV SCH (08:30)
[2021-10-07] MEDS: CEFTRIAXONE 2GM VIAL IVP SCH (08:31)
[2021-10-07] MEDS: MAGNESIUM CITRATE 296 ML SOLUTION PO SCH ×2 (10:29→10:34)
[2021-10-07] MEDS ORDERED: 0.9%NACL 1000ML 1,000 ML IV ONE (11:49)
[2021-10-07] MEDS ORDERED: PROPOFOL 10 MG/ML 20ML VIAL IV ONE ×2 (12:23)
[2021-10-07] MEDS: ACETAMINOPHEN 325 MG TAB PO PRN (14:20)
[2021-10-08] VITALS (7 sets, daily range): BP systolic 118–147; BP diastolic 53–71
[2021-10-08] MEDS ORDERED: FUROSEMIDE 40MG VIAL IV SCH ×2 (08:28→14:00)
[2021-10-08] MEDS ORDERED: APIXABAN 2.5 MG TABLET PO SCH (09:00)
[2021-10-08] MEDS ORDERED: PANTOPRAZOLE 40 MG TAB DR PO SCH (09:00)
[2021-10-08] MEDS ORDERED: EPOETIN ALFA-EPBX (NON-ESRD) 10,000 UNIT/ML VIAL SQ SCH (09:30)
[2021-10-08 09:31] LABS: BASOPHILS % (AUTO) 0.3 % (0.0-5.0); EOSINOPHILS % (AUTO) 3.7 % (0.0-8.0); HEMATOCRIT 26.4 % (42-54); LYMPHOCYTES % (AUTO) 12.5 % (21.0-51.0); MEAN CORPUSCULAR HEMOGLOBIN 29.2 pg (27.0-33.0); MEAN CORPUSCULAR HGB CONC 31.4 g/dL (32.0-36.0); MONOCYTES % (AUTO) 6.7 % (3.0-13.0); NEUTROPHILS % (AUTO) 75.5 % (40.0-77.0); NUCLEATED RED BLOOD CELLS 0.3 % (0.0-0.19); PLATELET COUNT (AUTO) 167 K/uL (130-400); RED BLOOD CELL COUNT(AUTO) 2.84 MIL/uL (4.50-6.20); RED CELL DISTRIBUTION WIDTH 17.2 % (11.0-15.5); WHITE BLOOD COUNT (AUTO) 6.2 K/uL (4.8-10.8)
[2021-10-08 09:33] LABS: RETICULOCYTE % (AUTO) 5.02 % (0.42-2.23)
[2021-10-08] MEDS ORDERED: 0.9%NACL 50ML 50 ML IV ONE (09:37)
[2021-10-08 09:51] LABS: % IRON SATURATION 26.3 % (30-44)
[2021-10-08 09:56] LABS: B-TYPE NATRIURETIC PEPTIDE 321 pg/mL (0-100)
[2021-10-08] MEDS: CEFTRIAXONE 2GM VIAL IVP SCH (09:58)
[2021-10-08] MEDS: MAGNESIUM CITRATE 296 ML SOLUTION PO SCH (10:00)
[2021-10-08 10:19] LABS: CREATININE 0.8 mg/dL (0.5-1.5); POTASSIUM 3.3 mmol/L (3.5-5.1)
[2021-10-08] MEDS: LOSARTAN 25 MG TABLET PO SCH (10:58)
[2021-10-08] MEDS: METOPROLOL SUCCINATE 50 MG TAB.SR.24H PO SCH (10:58)
[2021-10-08] MEDS: POTASSIUM CHLORIDE 20MEQ/100ML 100 ML IV PRN (10:59)
[2021-10-08] MEDS ORDERED: KCL 20 MEQ ERTAB PO SCH (11:00)
[2021-10-08] MEDS ORDERED: FUROSEMIDE 40 MG TABLET PO SCH (11:45)
[2021-10-08] MEDS: ACETAMINOPHEN 325 MG TAB PO PRN (12:05)
[2021-10-08] MEDS: FINASTERIDE 5 MG TABLET PO SCH (20:25)
[2021-10-08] MEDS: PANTOPRAZOLE 40 MG TAB DR PO SCH (20:25)
[2021-10-08] MEDS: ATORVASTATIN 40 MG TABLET PO SCH (20:25)
[2021-10-09 04:00] VITALS: BP 136/62
[2021-10-09] MEDS: LOSARTAN 25 MG TABLET PO SCH (08:28)
[2021-10-09] MEDS: FUROSEMIDE 40 MG TABLET PO SCH (08:28)
[2021-10-09] MEDS: METOPROLOL SUCCINATE 50 MG TAB.SR.24H PO SCH (08:29)
[2021-10-09] MEDS: CEFTRIAXONE 2GM VIAL IVP SCH (08:29)
[2021-10-09] MEDS: PANTOPRAZOLE 40 MG TAB DR PO SCH ×2 (08:29→20:11)
[2021-10-09 08:31] VITALS: BP 114/51
[2021-10-09 11:18] LABS: HEMATOCRIT 29.2 % (42-54); MEAN CORPUSCULAR HEMOGLOBIN 29.9 pg (27.0-33.0); MEAN CORPUSCULAR HGB CONC 31.5 g/dL (32.0-36.0); MEAN CORPUSCULAR VOLUME 94.8 fL (79-99); RED BLOOD CELL COUNT(AUTO) 3.08 MIL/uL (4.50-6.20); RED CELL DISTRIBUTION WIDTH 17.9 % (11.0-15.5); WHITE BLOOD COUNT (AUTO) 7.1 K/uL (4.8-10.8)
[2021-10-09 11:30] LABS: POTASSIUM 3.6 mmol/L (3.5-5.1)
[2021-10-09] MEDS ORDERED: FUROSEMIDE 40MG VIAL IV SCH (11:30)
[2021-10-09] MEDS: MAGNESIUM CITRATE 296 ML SOLUTION PO SCH (11:30)
[2021-10-09] MEDS ORDERED: IRON SUCROSE COMPLEX 500 MG in 0.9%NACL 50ML 50 ML IV SCH (11:30)
[2021-10-09] MEDS ORDERED: EPOETIN ALFA-EPBX (NON-ESRD) 10,000 UNIT/ML VIAL SQ SCH (12:00)
[2021-10-09 12:11] VITALS: BP 123/63
[2021-10-09 16:30] VITALS: BP 123/63
[2021-10-09] MEDS ORDERED: TAMSULOSIN HCL 0.4 MG CAP.ER.24H ONE (18:04)
[2021-10-09] MEDS ORDERED: TAMSULOSIN HCL 0.4 MG CAP.ER.24H PO SCH ×2 (18:30→20:00)
[2021-10-09 19:08] VITALS: BP 142/60
[2021-10-09] MEDS: ATORVASTATIN 40 MG TABLET PO SCH (20:11)
[2021-10-09] MEDS: FINASTERIDE 5 MG TABLET PO SCH (20:11)
[2021-10-09 23:46] VITALS: BP 138/67
[2021-10-10 03:15] VITALS: BP 102/45
[2021-10-10] MEDS: PANTOPRAZOLE 40 MG TAB DR PO SCH (08:07)
[2021-10-10] MEDS: LOSARTAN 25 MG TABLET PO SCH (08:07)
[2021-10-10] MEDS: METOPROLOL SUCCINATE 50 MG TAB.SR.24H PO SCH (08:07)
[2021-10-10] MEDS: FUROSEMIDE 40 MG TABLET PO SCH (08:08)
[2021-10-10] MEDS ORDERED: TAMSULOSIN HCL 0.4 MG CAP.ER.24H PO SCH (20:00)
== END 2021-10-10 08:45 | DRG 377 ==
LOC: EDH 18:28 → EDHIP 19:54 → 2DH 10-04 09:13
PROVIDERS: ADMIT Internal Medicine; ATTEND Internal Medicine
PROC: 30233N1 Transfusion of Nonautologous Red Blood Cells into Peripheral Vein, Percutaneous Approach (ICD-10-PCS; 2021-10-03)
PROC: 30233K1 Transfusion of Nonautologous Frozen Plasma into Peripheral Vein, Percutaneous Approach (ICD-10-PCS; 2021-10-04)
PROC: 0DJD8ZZ Inspection of Lower Intestinal Tract, Via Natural or Artificial Opening Endoscopic (ICD-10-PCS; principal; 2021-10-06)
PROC: 0DJD8ZZ Inspection of Lower Intestinal Tract, Via Natural or Artificial Opening Endoscopic (ICD-10-PCS; 2021-10-07)
PROC: 02HV33Z Insertion of Infusion Device into Superior Vena Cava, Percutaneous Approach (ICD-10-PCS; 2021-10-08)
DX: K57.31 Diverticulosis of large intestine without perforation or abscess with bleeding (principal); R57.1 Hypovolemic shock; R57.8 Other shock; J96.01 Acute respiratory failure with hypoxia; D62 Acute posthemorrhagic anemia; D68.9 Coagulation defect, unspecified; K82.1 Hydrops of gallbladder; I50.32 Chronic diastolic (congestive) heart failure; Z68.41 Body mass index [BMI] 40.0-44.9, adult; K63.5 Polyp of colon; I11.0 Hypertensive heart disease with heart failure; I25.10 Atherosclerotic heart disease of native coronary artery without angina pectoris; I48.91 Unspecified atrial fibrillation; G89.29 Other chronic pain; F41.9 Anxiety disorder, unspecified; E78.00 Pure hypercholesterolemia, unspecified; E66.9 Obesity, unspecified; E11.51 Type 2 diabetes mellitus with diabetic peripheral angiopathy without gangrene; T50.905A Adverse effect of unspecified drugs, medicaments and biological substances, initial encounter; N30.90 Cystitis, unspecified without hematuria; E87.6 Hypokalemia; K64.8 Other hemorrhoids; R54 Age-related physical debility; Z96.653 Presence of artificial knee joint, bilateral; Y92.89 Other specified places as the place of occurrence of the external cause; Z79.01 Long term (current) use of anticoagulants; Z79.899 Other long term (current) drug therapy; Z87.891 Personal history of nicotine dependence; Z95.5 Presence of coronary angioplasty implant and graft; Z86.79 Personal history of other diseases of the circulatory system; Z87.19 Personal history of other diseases of the digestive system; Z82.3 Family history of stroke; Z80.9 Family history of malignant neoplasm, unspecified; Z20.822 Contact with and (suspected) exposure to COVID-19
CPT/HCPCS: 36415; 36430; 45378; 71045; 74176; 74178; 80048; 80053; 81001; 82607; 82728; 82746; 82948; 83540; 83550; 83605; 83735; 83880; 84100; 84132; 84484; 85014; 85018; 85025; 85027; 85045; 85610; 85730; 86850; 86900; 86901; 86923; 86927; 87040; 87088; 87635; 93005; 94760; 97039; A4606; C1751; C1894; C9113; G0378; J0696; J1756; J1940; J2405; J2704; J3010; J3430; J3480; J3490; J7030; J7050; J7120; P9016; P9017; P9047; Q9967

== ENCOUNTER 2021-12-18 09:12 | Emergency (ER) | payer MEDICARE ==
[~2021-12-18] VITALS: Ht 182.9 cm; Wt 114.8 kg
[~2021-12-18 09:12] MED LIST changes: -AMIO200T68 PO; -APIX5TAB PO; -ASCO500C6 PO; -ASPI-1443 PO; -CHOL100040 PO; -CLON1TAB12 PO; -FINA5TAB41 PO; -LOSA100T58 PO; -LOVA40TA2 PO; -METO100T7 PO; -OMEP20CA12 PO; -POTA-202 PO; -TERA10CA4 PO; -TRAM100T34 PO
[2021-12-18 10:02] LABS: BASOPHILS % (AUTO) 0.3 % (0.0-5.0); EOSINOPHILS % (AUTO) 2.8 % (0.0-8.0); HEMATOCRIT 42.4 % (42-54); LYMPHOCYTES % (AUTO) 17.2 % (21.0-51.0); MEAN CORPUSCULAR HEMOGLOBIN 29.1 pg (27.0-33.0); MEAN CORPUSCULAR HGB CONC 30.4 g/dL (32.0-36.0); MEAN CORPUSCULAR VOLUME 95.5 fL (79-99); NEUTROPHILS % (AUTO) 74.3 % (40.0-77.0); PLATELET COUNT (AUTO) 141 K/uL (130-400); RED BLOOD CELL COUNT(AUTO) 4.44 MIL/uL (4.50-6.20); RED CELL DISTRIBUTION WIDTH 15.8 % (11.0-15.5); WHITE BLOOD COUNT (AUTO) 6.8 K/uL (4.8-10.8)
[2021-12-18 10:14] LABS: APPEARANCE,URINE TURBID (CLEAR); BILIRUBIN,URINE SMALL (NEGATIVE); COLOR,URINE DARK YELLOW (YELLOW); GLUCOSE, URINE (UA) NEGATIVE (NEGATIVE); KETONES,URINE NEGATIVE (NEGATIVE); LEUKOCYTE ESTERASE ,URINE MODERATE (NEGATIVE); NITRATE,URINE POSITIVE (NEGATIVE); OCCULT BLOOD,URINE LARGE (NEGATIVE); PH,URINE 5.5 (5.0-8.0); PROTEIN,URINE 100 mg/dL (NEGATIVE)
[2021-12-18 10:29] LABS: BACTERIA,URINE Few /HPF (None Seen); RBC,URINE TNTC /HPF (0-1); SQUAMOUS EPITHELIAL CELL,UR Rare /HPF (0-2); WBC,URINE TNTC /HPF (0-1)
[2021-12-18 10:35] LABS: POTASSIUM 3.7 mmol/L (3.5-5.1)
[2021-12-18 10:36] LABS: INR 1.05 (0.85-1.15); PROTHROMBIN TIME 11.4 SEC (9.6-11.6)
[2021-12-18 10:38] LABS: PARTIAL THROMBOPLASTIN TIME 31.3 SEC (26.3-35.5)
[2021-12-18] MEDS ORDERED: CEFP200T14 PO (10:53)
[2021-12-18 11:06] VITALS: BP 144/67
== END 2021-12-18 11:08 | disposition home or self-care (01) ==
LOC: EDH 09:12
DX: N39.0 Urinary tract infection, site not specified (principal); R31.9 Hematuria, unspecified; I10 Essential (primary) hypertension; I25.10 Atherosclerotic heart disease of native coronary artery without angina pectoris; Z79.899 Other long term (current) drug therapy; Z95.5 Presence of coronary angioplasty implant and graft
CPT/HCPCS: 36415; 80048; 81001; 85025; 85610; 85730; 87077; 87088; 87186

== ENCOUNTER → 2023-03-30 | Outpatient (CLI) | payer MEDICARE ==
[~2023-03-30] MED LIST changes: +ACET-2247 PO; +AMIO200T68 PO; -AMLO-258 PO; +AMLO2.5T2 PO; +APIX5TAB PO; +ASPI-1443 PO; +ATOR10 PO; +BENZ-226 PO; +BISA10SU11 RC; +DAPA10TA PO; +FINA5TAB2 PO; -FURO40TA5 PO; +FURO40TA7 PO; -HYDR-3420 PO; +HYDR-4153 PO; +HYDR30CR79 RC; +METO50TA18 PO; -OCCUVITE PO; +ONDA-104 PO; +PANT40TA54 PO; +SACU1TAB PO; +TRAZ-185 PO; +[UNRECOGNIZED DRUG - CODE] PO
[2023-03-30 12:48] LABS: ALBUMIN 3.2 g/dL (3.5-5.0); CREATININE 1.2 mg/dL (0.5-1.5); POTASSIUM 4.5 mmol/L (3.5-5.1); TOTAL PROTEIN, SERUM 6.9 g/dL (6.0-8.3)
== END | disposition home or self-care (01) ==
LOC: LAB 10:19
PROVIDERS: ATTEND Internal Medicine Cardiovascular Disease
DX: I10 Essential (primary) hypertension (principal)
CPT/HCPCS: 36415; 80053

== ENCOUNTER → 2023-10-29 | Outpatient (CLI) | payer MEDICARE ==
[~2023-10-29] MED LIST changes: +FINA-37 PO; -FINA5TAB2 PO; +TRAM50TA4 PO; +[UNRECOGNIZED DRUG - CODE] PO; -[UNRECOGNIZED DRUG - CODE] PO
== END | disposition home or self-care (01) ==
LOC: SHCH 08:20
PROVIDERS: ATTEND Internal Medicine Cardiovascular Disease
DX: I08.0 Rheumatic disorders of both mitral and aortic valves (principal); I11.9 Hypertensive heart disease without heart failure; I48.0 Paroxysmal atrial fibrillation
CPT/HCPCS: 93306

== ENCOUNTER 2023-12-06 06:49 | Day surgery (SDC) | payer MEDICARE ==
[2023-12-02 10:13] LABS: BASOPHILS # (AUTO) 0.03 K/uL (0.00-0.20); BASOPHILS % (AUTO) 0.4 % (0.0-5.0); EOSINOPHILS # (AUTO) 0.15 K/uL (0.00-0.70); EOSINOPHILS % (AUTO) 1.9 % (0.0-8.0); HEMATOCRIT 46.7 % (42-54); IMMATURE GRANULOCYTE ABSOLUTE 0.04 K/uL (0-1); LYMPHOCYTES # (AUTO) 1.3 K/uL (1.0-4.8); LYMPHOCYTES % (AUTO) 16.8 % (21.0-51.0); MEAN CORPUSCULAR HEMOGLOBIN 30.5 pg (27.0-33.0); MEAN CORPUSCULAR VOLUME 98.3 fL (79-99); MONOCYTES # (AUTO) 0.4 K/uL (0.1-1.0); MONOCYTES % (AUTO) 5.6 % (3.0-13.0); NEUTROPHILS # (AUTO) 5.8 K/uL (1.8-7.7); NEUTROPHILS % (AUTO) 74.8 % (40.0-77.0); PLATELET COUNT (AUTO) 130 K/uL (130-400); RED BLOOD CELL COUNT(AUTO) 4.75 MIL/uL (4.50-6.20); WHITE BLOOD COUNT (AUTO) 7.7 K/uL (4.8-10.8)
[2023-12-02 10:20] LABS: INR 1.03 (0.85-1.15); PROTHROMBIN TIME 11.9 SEC (9.6-11.6)
[2023-12-02 10:21] LABS: PARTIAL THROMBOPLASTIN TIME 32.1 SEC (26.3-35.5)
[2023-12-02 10:23] LABS: CREATININE 1.2 mg/dL (0.5-1.5); POTASSIUM 4.2 mmol/L (3.5-5.1)
[2023-12-02 10:35] LABS: APPEARANCE,URINE CLEAR (CLEAR); BILIRUBIN,URINE NEGATIVE (NEGATIVE); COLOR,URINE LIGHT-YELLOW (YELLOW); GLUCOSE, URINE (UA) NEGATIVE (NEGATIVE); KETONES,URINE NEGATIVE (NEGATIVE); LEUKOCYTE ESTERASE ,URINE NEGATIVE Leu/uL (NEGATIVE); NITRATE,URINE NEGATIVE (NEGATIVE); OCCULT BLOOD,URINE SMALL (NEGATIVE); PH,URINE 5.5 (5.0-8.0); PROTEIN,URINE 50 mg/dL (NEGATIVE); UROBILINOGEN,URINE 0.2 mg/dL (0.2-1.0)
[2023-12-02 10:38] LABS: ADD UA MICROSCOPIC YES
[2023-12-02 11:16] VITALS: BP 140/80; PULSE 72; RESP 17
[2023-12-02 11:17] LABS: MUCUS,URINE RARE LPF (None Seen); OTHER CASTS, URINE 1 /LPF (None Seen); RBC,URINE 26-50 /HPF (0-1)
[2023-12-02 11:38] LABS: B-TYPE NATRIURETIC PEPTIDE 497 pg/mL (0-100)
[2023-12-06] VITALS (11 sets, daily range): BP systolic 118–177; BP diastolic 50–93; PULSE 62–92; RESP 14–19
[~2023-12-06] VITALS: Ht 182.9 cm; Wt 116.1 kg
[~2023-12-06 06:49] MED LIST changes: -ACET-2247 PO; -AMLO2.5T2 PO; +AMLO2.5T4 PO; -ASPI-1443 PO; -BENZ-226 PO; -BISA10SU11 RC; +CLON0.1T PO; -DAPA10TA PO; -FURO40TA7 PO; -HYDR-4153 PO; +HYDR25TA67 PO; -HYDR30CR79 RC; +LEVA0.6333 IH; +LEVO75CA5 PO; +METO100T7 PO; -METO50TA18 PO; -MULT-1285 PO; +NITR0.4T50 SL; +OMEP20TA20 PO; -ONDA-104 PO; -PANT40TA54 PO; +POTA-202 PO; +TORS20TA4 PO; -TRAM50TA4 PO; -[UNRECOGNIZED DRUG - CODE] PO
[2023-12-06] MEDS ORDERED: 0.9%NACL 1000ML 1,000 ML IV ONE (08:14)
[2023-12-06] MEDS ORDERED: LIDOCAINE HCL 400MG/20ML VIAL ONE (10:37)
[2023-12-06] MEDS ORDERED: NICARDIPINE 25MG INJ IV ONE (10:38)
[2023-12-06] MEDS ORDERED: HEPARIN 10,000 UNIT/10ML (1,000 UNIT/ML) VIAL ONE (10:38)
[2023-12-06] MEDS ORDERED: MEPERIDINE-PF 25 MG/ML SYG ONE ×3 (10:38→11:29)
[2023-12-06] MEDS ORDERED: MIDAZOLAM HCL 1 MG/ML 2ML VIAL ONE ×3 (10:38→11:29)
[2023-12-06] MEDS ORDERED: IOHEXOL 350 MG/ML 100ML INFUS..BTL IV ONE (10:40)
[2023-12-06] MEDS ORDERED: NITROGLYCERIN 50MG VIAL ONE (10:47)
[2023-12-06] MEDS ORDERED: HYDRALAZINE 20MG/ML VIAL IV PRN (12:30)
== END 2023-12-06 15:35 | disposition home or self-care (01) ==
LOC: DAH 06:49
PROVIDERS: ATTEND Internal Medicine Cardiovascular Disease
DX: I77.1 Stricture of artery (principal); I25.10 Atherosclerotic heart disease of native coronary artery without angina pectoris; I71.40 Abdominal aortic aneurysm, without rupture, unspecified; I25.5 Ischemic cardiomyopathy; Q25.49 Other congenital malformations of aorta; I44.7 Left bundle-branch block, unspecified; I50.42 Chronic combined systolic (congestive) and diastolic (congestive) heart failure; K21.9 Gastro-esophageal reflux disease without esophagitis; E03.9 Hypothyroidism, unspecified; Z79.899 Other long term (current) drug therapy; Z98.890 Other specified postprocedural states; Z98.49 Cataract extraction status, unspecified eye; Z95.5 Presence of coronary angioplasty implant and graft; Z79.01 Long term (current) use of anticoagulants
CPT/HCPCS: 80048; 83880; 85025; 85610; 85730; 81001; 36415; 71045; 93005; 75710; 36215; C1887; C1769 ×3; C1894; Q9965; J3490 ×3; J7030; J1644 ×2; J2250 ×3; J2175 ×3; Q9967; A4215; A4222; A4221; A4663; A4216; A4606; A4223 ×3; 99156; 99157

== ENCOUNTER 2024-01-10 08:15 | Day surgery (SDC) | payer MEDICARE ==
[2024-01-07 10:51] LABS: BASOPHILS # (AUTO) 0.04 K/uL (0.00-0.20); BASOPHILS % (AUTO) 0.4 % (0.0-5.0); EOSINOPHILS # (AUTO) 0.24 K/uL (0.00-0.70); EOSINOPHILS % (AUTO) 2.3 % (0.0-8.0); HEMATOCRIT 49.8 % (42-54); IMMATURE GRANULOCYTE ABSOLUTE 0.11 K/uL (0-1); LYMPHOCYTES # (AUTO) 2.5 K/uL (1.0-4.8); LYMPHOCYTES % (AUTO) 23.3 % (21.0-51.0); MEAN CORPUSCULAR HEMOGLOBIN 30.3 pg (27.0-33.0); MEAN CORPUSCULAR HGB CONC 31.1 g/dL (32.0-36.0); MEAN CORPUSCULAR VOLUME 97.3 fL (79-99); MONOCYTES # (AUTO) 0.5 K/uL (0.1-1.0); NEUTROPHILS # (AUTO) 7.2 K/uL (1.8-7.7); PLATELET COUNT (AUTO) 110 K/uL (130-400); RED BLOOD CELL COUNT(AUTO) 5.12 MIL/uL (4.50-6.20); RED CELL DISTRIBUTION WIDTH 15.5 % (11.0-15.5); WHITE BLOOD COUNT (AUTO) 10.6 K/uL (4.8-10.8)
[2024-01-07 11:00] LABS: CREATININE 1.4 mg/dL (0.5-1.5); POTASSIUM 4.5 mmol/L (3.5-5.1)
[2024-01-07 11:25] LABS: B-TYPE NATRIURETIC PEPTIDE 285 pg/mL (0-100)
[2024-01-07 11:43] LABS: INR 0.98 (0.85-1.15); PROTHROMBIN TIME 11.6 SEC (9.6-11.6)
[2024-01-07 11:45] LABS: PARTIAL THROMBOPLASTIN TIME 31.9 SEC (26.3-35.5)
[2024-01-07 11:46] VITALS: BP 150/80; PULSE 75; RESP 16
[2024-01-07 12:25] LABS: ADD UA MICROSCOPIC YES; APPEARANCE,URINE CLEAR (CLEAR); BILIRUBIN,URINE NEGATIVE (NEGATIVE); COLOR,URINE LIGHT-YELLOW (YELLOW); GLUCOSE, URINE (UA) NEGATIVE (NEGATIVE); KETONES,URINE NEGATIVE (NEGATIVE); LEUKOCYTE ESTERASE ,URINE NEGATIVE Leu/uL (NEGATIVE); NITRATE,URINE NEGATIVE (NEGATIVE); PH,URINE 5.5 (5.0-8.0); PROTEIN,URINE NEGATIVE (NEGATIVE); UROBILINOGEN,URINE 0.2 mg/dL (0.2-1.0)
[2024-01-07 12:28] LABS: WBC,URINE 0-1 /HPF (0-1)
[2024-01-10] VITALS (9 sets, daily range): BP systolic 131–173; BP diastolic 71–92; PULSE 69–87; RESP 16–19
[~2024-01-10] VITALS: Ht 185.4 cm; Wt 115.7 kg
[~2024-01-10 08:15] MED LIST changes: +ASCO500C18 PO; +ASPI-449 PO; +HYDR-4060 PO; +MENS MVI PO; +OCCUVITE PO; +TRAM100T40 PO; +VITAMIN D3 PO
[2024-01-10] MEDS ORDERED: SODIUM BICARB 50MEQ 50ML VIAL 50 ML ONE (10:33)
[2024-01-10] MEDS ORDERED: NICARDIPINE 25MG INJ IV ONE (10:33)
[2024-01-10] MEDS ORDERED: IOHEXOL 350 MG/ML 100ML INFUS..BTL IV ONE (10:33)
[2024-01-10] MEDS ORDERED: MIDAZOLAM HCL 1 MG/ML 2ML VIAL ONE ×2 (10:33→12:01)
[2024-01-10] MEDS ORDERED: HEPARIN 10,000 UNIT/10ML (1,000 UNIT/ML) VIAL ONE (10:33)
[2024-01-10] MEDS ORDERED: LIDOCAINE HCL 400MG/20ML VIAL ONE (10:33)
[2024-01-10] MEDS ORDERED: MEPERIDINE-PF 25 MG/ML SYG ONE ×2 (10:33→12:01)
[2024-01-10] MEDS ORDERED: NITROGLYCERIN 50MG VIAL ONE (10:34)
== END 2024-01-10 16:30 | disposition home or self-care (01) ==
LOC: DAH 08:15
PROVIDERS: ATTEND Internal Medicine Cardiovascular Disease
DX: I25.119 Atherosclerotic heart disease of native coronary artery with unspecified angina pectoris (principal); I71.00 Dissection of unspecified site of aorta; I25.5 Ischemic cardiomyopathy; I11.0 Hypertensive heart disease with heart failure; I50.42 Chronic combined systolic (congestive) and diastolic (congestive) heart failure; K21.9 Gastro-esophageal reflux disease without esophagitis; I48.0 Paroxysmal atrial fibrillation; E03.9 Hypothyroidism, unspecified; Z95.5 Presence of coronary angioplasty implant and graft; Z79.01 Long term (current) use of anticoagulants; Z79.899 Other long term (current) drug therapy; Z98.890 Other specified postprocedural states; Z79.82 Long term (current) use of aspirin; Z90.49 Acquired absence of other specified parts of digestive tract; Z98.49 Cataract extraction status, unspecified eye; Z79.890 Hormone replacement therapy
CPT/HCPCS: 80048; 83880; 85025; 85610; 85730; 81001; 36415; 71045; 93005; 93454; 75710; C1887; C1769 ×4; C1894 ×2; A4649; J3490 ×4; J1644 ×2; J2250 ×2; J2175 ×2; Q9967; A4215; A6402; A4222; A4221; A4663; A4216; A6258; A4606; Q9965; A4223 ×3; 36215; 93458; 99156; 99157

== ENCOUNTER → 2025-02-15 | Outpatient (CLI) | payer MEDICARE ==
[~2025-02-15] MED LIST changes: -ATOR10 PO; +ATOR10TA69 PO; +FINA5TAB41 PO; -HYDR-4060 PO; +HYDR25 PO; -HYDR25TA67 PO; +LEVO75 PO; -LEVO75CA5 PO; +METO-409 PO; -METO100T7 PO; +METO2.5T2 PO; -POTA-202 PO; +POTA-364 PO; -SACU1TAB PO; +SACU1TAB7 PO; +SPIR25TA6 PO; -TRAM100T40 PO; -TRAZ-185 PO; +TRAZ-258 PO
[2025-02-15 14:24] LABS: CREATININE 1.3 mg/dL (0.5-1.3)
== END | disposition home or self-care (01) ==
LOC: LAB 13:24
PROVIDERS: ATTEND Internal Medicine Gastroenterology
DX: K86.9 Disease of pancreas, unspecified (principal)
CPT/HCPCS: 36415; 82565; 84520

== ENCOUNTER → 2025-02-19 | Outpatient (CLI) | payer MEDICARE ==
[~2025-02-19] MED LIST changes: +IOHEXOL-350 75 ML VIAL IV ONE
--- NOTE | 2025-02-19 09:33 | HMCIMG ---
CT ABDOMEN W/WO CONTRAST HISTORY: Injury disease COMPARISON: 04/18/2024 TECHNIQUE: Multiple sequential axial images of the abdomen were obtained from the dome of the diaphragm through iliac crests. Patient was given 75 cc of Omnipaque through intravenous route. Oral contrast was not given. FINDINGS: No pleural effusion is seen bilaterally. Mild interstitial fibrotic changes are seen. There is no evidence of parenchymal disease or pulmonary nodule of the visualized lower lungs. Degenerative changes are seen of the thoracolumbar spine. Coronary arterial calcifications are seen. Gallstones are seen in the gallbladder. Aortic stent is seen. Mild intrahepatic biliary air is seen. Fatty replacement of the pancreas is seen. There is soft tissue density in the pancreatic head area has improved. Clinical correlation is recommended. The liver, spleen, adrenal glands are unremarkable. There is no evidence of hydronephrosis bilaterally. No evidence of renal stone is seen. There is diverticulosis. Fecal material is seen in the colon. There are normal-sized retroperitoneal and mesenteric lymph nodes. No ascites is seen. Atherosclerotic changes are present. IMPRESSION: 1. All stones in the gallbladder. Diverticulosis. No ascites. CT was performed with one or more following dose reduction techniques: automated exposure control, adjustment of the mA and kv according to patient's size, or use of a iterative reconstruction technique.
== END | disposition home or self-care (01) ==
LOC: RAH 07:04 → DAH 07:04
PROVIDERS: ATTEND Internal Medicine Gastroenterology
DX: K80.20 Calculus of gallbladder without cholecystitis without obstruction (principal); K57.90 Diverticulosis of intestine, part unspecified, without perforation or abscess without bleeding; M79.89 Other specified soft tissue disorders; J84.10 Pulmonary fibrosis, unspecified; I25.10 Atherosclerotic heart disease of native coronary artery without angina pectoris; M47.815 Spondylosis without myelopathy or radiculopathy, thoracolumbar region; I70.90 Unspecified atherosclerosis; K86.9 Disease of pancreas, unspecified
CPT/HCPCS: 74170; Q9967